=== PATIENT | female | born 1940 | race Caucasian/White ===

== ENCOUNTER → 2019-07-02 | Outpatient (CLI) | payer OTHER ==
[~2019-07-02] MED LIST: ATENPOW10; LISIPOW; METFORMIN; PROVASTATIN; SYNTHROID
[2019-07-02 15:49] LABS: Urine Blood TRACE /uL (Negative); Urine Specific Gravity 1.049 (1.001-1.035)
[2019-07-02 15:58] LABS: Basophils # (auto) 0.1 uL; Basophils % (auto) 1.2 % (0.0-2.0); Eosinophils # (auto) 0 uL; Eosinophils % (auto) 0.6 % (0.0-7.0); Hematocrit 41.6 % (36.0-46.0); Hemoglobin 13.5 g/dL (12.2-16.2); Lymphocytes # (auto) 1.6 uL; Lymphocytes % (auto) 21.6 % (10.0-50.0); Mean Corpuscular Hemoglobin 30.3 pg (28.0-32.0); Mean Corpuscular Hgb Conc. 32.6 g/dL (32.0-36.0); Mean Corpuscular Volume 92.9 fL (80.0-100.0); Monocytes # (auto) 0.5 uL; Monocytes % (auto) 7.2 % (0.0-12.0); Neutrophils # (auto) 5.2 uL; Neutrophils % (auto) 69.4 % (37.0-80.0); Nucleated Red Blood Cells % 0.1 %; Platelet Count (auto) 418 10^3/uL (140-450); Red Blood Cells 4.47 10^6/uL (4.0-5.20); Red Cell Distribution Width 13.5 % (11.8-14.3); White Blood Cell 7.5 10^3/uL (4.4-10.8)
[2019-07-02 16:09] LABS: Free T4 (Free Thyroxine) 0.19 ng/dL (0.89-1.76)
[2019-07-02 16:10] LABS: Albumin 4.2 g/dL (3.4-5.0); Calcium 10.3 mg/dL (8.5-10.1); Potassium 4.3 mmol/L (3.5-5.1)
[2019-07-02 16:24] LABS: BUN/Creatinine Ratio 14.5; Bilirubin, Direct 0.2 mg/dL (0-0.2); Bilirubin, Total 0.5 mg/dL (0.2-1.0); Total Protein 9.3 g/dL (6.4-8.2)
== END | disposition home or self-care (01) ==
LOC: Rad HDHVI 11:27
PROVIDERS: ATTEND Internal Medicine Cardiovascular Disease
DX: I70.0 Atherosclerosis of aorta (principal); E03.9 Hypothyroidism, unspecified; K90.9 Intestinal malabsorption, unspecified; N39.0 Urinary tract infection, site not specified; D51.9 Vitamin B12 deficiency anemia, unspecified; J44.9 Chronic obstructive pulmonary disease, unspecified; Z79.899 Other long term (current) drug therapy
CPT/HCPCS: 36415; 71046; 80048; 80061; 80076; 81003; 82306; 82607; 83036; 84439; 84443; 85025

== ENCOUNTER → 2019-07-11 | Outpatient (CLI) | payer OTHER | END | disposition home or self-care (01) | LOC: Rad HDHVI 13:10 | PROVIDERS: ATTEND Internal Medicine Cardiovascular Disease | DX: I10 Essential (primary) hypertension (principal); R07.89 Other chest pain; E78.5 Hyperlipidemia, unspecified | CPT/HCPCS: 93306 ==

== ENCOUNTER → 2019-07-16 | Outpatient (CLI) | payer OTHER ==
[2019-07-16 10:55] VITALS: BP 120/79
--- NOTE | 2019-07-16 10:55 | NUR ---
CHF PT ARRIVED TO THE CHF CLINIC NOT FEELING WELL PAST WEEK, INCREASED HR AND BLOOD SUGARS. A/O X 4 O DISTRESS AT THIS TIME VSS
[2019-07-16 11:20] VITALS: BP 128/83
--- NOTE | 2019-07-16 11:20 | NUR ---
Discharge Instructions See e-MAR for any mediations given with this visit. Patient education given on disease process. Patient verbalized understanding. Previous labs reviewed. Patient discharged in stable condition with after care instructions and follow up appointment. PT BLOOD SUGARS HAVE BEEN HIGH PATIENT HAS STOPPED BS MEDICATIONS INTERMITTENTLY WHILE NOT FEELING WELL. SITUATION REVIEWD BY MARGO WITH MD GUNN. MED RECONCILATION COMPLETED. PT VERBALIZED UNDERSTANDING. RX CALLED IN FOR ATENOLOL 25MG PO BID. PHARMACY JARROD ALDRIDGE
[2019-07-16 16:03] LABS: Potassium 3.9 mmol/L (3.5-5.1)
[2019-07-16 16:09] LABS: BUN/Creatinine Ratio 22.1; Magnesium 2.3 mg/dL (1.6-2.6)
== END | disposition home or self-care (01) ==
LOC: CHF HDHVI 10:47
PROVIDERS: ATTEND Internal Medicine Cardiovascular Disease
DX: E83.40 Disorders of magnesium metabolism, unspecified (principal); I10 Essential (primary) hypertension; E11.65 Type 2 diabetes mellitus with hyperglycemia; Z91.048 Other nonmedicinal substance allergy status
CPT/HCPCS: 36415; 80048; 82962; 83735; G0463

== ENCOUNTER → 2019-07-18 | Outpatient (CLI) | payer OTHER ==
[~2019-07-18] VITALS: Ht 160 cm; Wt 58.5 kg
== END | disposition home or self-care (01) ==
LOC: Rad HDHVI 08:30
PROVIDERS: ATTEND Internal Medicine Cardiovascular Disease
DX: E78.00 Pure hypercholesterolemia, unspecified (principal); E03.9 Hypothyroidism, unspecified; Q24.9 Congenital malformation of heart, unspecified; R07.89 Other chest pain
CPT/HCPCS: 78452; 93017; 96374; A9500

== ENCOUNTER → 2019-07-24 | Outpatient (CLI) | payer OTHER ==
[~2019-07-24] MED LIST changes: +CYANOCOBALAMIN (B-12) 1000 MCG/1 ML VIAL IM ONE; +CYANOCOBALAMIN (B-12) 1000 MCG/1 ML VIAL ONE; +MAGNESIUM OXIDE 400 MG TAB ONE; +MAGNESIUM OXIDE 400 MG TAB PO ONE; +MAGNESIUM SULFATE 1GM/100ML 100 ML IV ONE; +MVI in SODIUM CHLORIDE 0.9% 1,000 ML IVB ONE; +MVI in SODIUM CHLORIDE 0.9% 1,010 ML ONE
--- NOTE | 2019-07-24 10:25 | NUR ---
CHF PT ARRIVED TO THE CHF CLINIC EXPRESSING FATIGUE AND GENERALIZED NOT FEELING WELL. ORDERS TO TRANSFUSE MVI. VSS PT A/O X 4
--- NOTE | 2019-07-24 10:45 | NUR ---
IV insertion IV access obtained, via clean sterile technique by inserting 22 gauge catheter at RAC after attempt(s). IV secured properly. No trauma to site. Patient tolerated procedure well.
[2019-07-24 11:00] VITALS: BP 120/66
[2019-07-24 11:30] VITALS: BP 124/69
[2019-07-24 12:00] VITALS: BP 135/76
[2019-07-24 12:13] LABS: Basophils # (auto) 0.1 uL; Basophils % (auto) 0.9 % (0.0-2.0); Eosinophils # (auto) 0 uL; Eosinophils % (auto) 0.5 % (0.0-7.0); Hematocrit 39.1 % (36.0-46.0); Hemoglobin 12.9 g/dL (12.2-16.2); Lymphocytes # (auto) 2.1 uL; Lymphocytes % (auto) 26.9 % (10.0-50.0); Mean Corpuscular Hemoglobin 30.6 pg (28.0-32.0); Mean Corpuscular Hgb Conc. 33.1 g/dL (32.0-36.0); Mean Corpuscular Volume 92.4 fL (80.0-100.0); Monocytes # (auto) 0.6 uL; Neutrophils # (auto) 4.9 uL; Neutrophils % (auto) 63.7 % (37.0-80.0); Platelet Count (auto) 316 10^3/uL (140-450); Red Blood Cells 4.23 10^6/uL (4.0-5.20); Red Cell Distribution Width 13.3 % (11.8-14.3); White Blood Cell 7.6 10^3/uL (4.4-10.8)
[2019-07-24 12:49] LABS: Albumin 4.3 g/dL (3.4-5.0); Calcium 10.3 mg/dL (8.5-10.1); Magnesium 1.8 mg/dL (1.6-2.6)
[2019-07-24 12:53] LABS: BUN/Creatinine Ratio 26.2; Bilirubin, Total 0.5 mg/dL (0.2-1.0); Total Protein 8.3 g/dL (6.4-8.2)
--- NOTE | 2019-07-24 14:00 | NUR ---
LABS PT LABS CAME BACK MAGNESIUM LOW AND BUN CREA SLIGHTLY ELEVATED. MARGO RN REVIEWED LABS WITH PATIENT DISCUSSED HYDRATION, ARGINETIX AND DIABETIC EDUCATION. PT VERBALIZED UNDERSTANDING
--- NOTE | 2019-07-24 14:40 | NUR ---
IV removal IV DC'd with sterile technique, catheter fully intact. Pressure dressing applied to site. Patient tolerated procedure well. Discharged with aftercare instructions per MD. NOTE:
[2019-07-24 14:45] VITALS: BP 149/81
--- NOTE | 2019-07-24 14:45 | NUR ---
Discharge Instructions See e-MAR for any mediations given with this visit. Patient education given on disease process. Patient verbalized understanding. Previous labs reviewed. Patient discharged in stable condition with after care instructions and follow up appointment. MEDICATIONS MVI BAG I LITER [id number] VITAMIN B12 1000 MCG IM X 1 LEFT DELTOID LOT # [id number] EXP 03-25 MAGNESIUM RIDER 1 GRAM [id number] MAG OXIDE PO PT STATED SHE IS FEELING BETTER PLAN OF CARE DISCUSSED WITH MARGO RN PT VERBALIZED UNDERSTANDING
[2019-07-24 15:23] LABS: Urine Blood Negative /uL (Negative); Urine Specific Gravity 1.019 (1.001-1.035)
== END | disposition home or self-care (01) ==
LOC: CHF HDHVI 10:36
PROVIDERS: ATTEND Internal Medicine Cardiovascular Disease
DX: E86.0 Dehydration (principal); R53.83 Other fatigue; D64.9 Anemia, unspecified; J44.9 Chronic obstructive pulmonary disease, unspecified; N39.0 Urinary tract infection, site not specified; E03.9 Hypothyroidism, unspecified; E11.9 Type 2 diabetes mellitus without complications; E78.00 Pure hypercholesterolemia, unspecified; E78.5 Hyperlipidemia, unspecified; I10 Essential (primary) hypertension; Z79.899 Other long term (current) drug therapy
CPT/HCPCS: 36415; 80053; 81003; 83036; 83735; 85025; 96365; 96366; 96367; 96372; G0463; J3411; J3420; J3475

== ENCOUNTER → 2019-07-30 | Outpatient (CLI) | payer OTHER ==
[~2019-07-30] VITALS: Ht 30.5 cm; Wt 0.5 kg
[~2019-07-30] MED LIST changes: -CYANOCOBALAMIN (B-12) 1000 MCG/1 ML VIAL IM ONE; -CYANOCOBALAMIN (B-12) 1000 MCG/1 ML VIAL ONE; -MAGNESIUM OXIDE 400 MG TAB ONE; -MAGNESIUM OXIDE 400 MG TAB PO ONE; -MAGNESIUM SULFATE 1GM/100ML 100 ML IV ONE; -MVI in SODIUM CHLORIDE 0.9% 1,000 ML IVB ONE; +MVI in SODIUM CHLORIDE 0.9% 500 ML IVB ONE
[2019-07-30 10:50] VITALS: BP 110/62
--- NOTE | 2019-07-30 11:00 | NUR ---
IV insertion IV access obtained, via clean sterile technique by inserting 22 gauge catheter at RAC after 1 attempt(s). IV secured properly. No trauma to site. Patient tolerated procedure well.
--- NOTE | 2019-07-30 13:50 | NUR ---
IV removal IV DC'd with sterile technique, catheter fully intact. Pressure dressing applied to site. Patient tolerated procedure well.
[2019-07-30 13:52] VITALS: BP 136/85
--- NOTE | 2019-07-30 13:52 | NUR ---
CHF CLINIC Discharge Instructions See e-MAR for any mediations given with this visit. Patient education given on disease process. Patient verbalized understanding. Previous labs reviewed. Patient discharged in stable condition with after care instructions and follow up appointment. NOTE MVI IN NS [id number] ADMIN BY MARIO ALBERTO WALLER
== END | disposition home or self-care (01) ==
LOC: CHF HDHVI 10:52
PROVIDERS: ATTEND Internal Medicine Cardiovascular Disease
DX: R53.83 Other fatigue (principal); R53.1 Weakness; I11.0 Hypertensive heart disease with heart failure; I50.9 Heart failure, unspecified; J44.9 Chronic obstructive pulmonary disease, unspecified; E78.00 Pure hypercholesterolemia, unspecified; E11.65 Type 2 diabetes mellitus with hyperglycemia; E78.5 Hyperlipidemia, unspecified; E03.9 Hypothyroidism, unspecified; Z79.899 Other long term (current) drug therapy
CPT/HCPCS: 96365; 96366; G0463; J3411; J3475

== ENCOUNTER → 2019-08-07 | Outpatient (CLI) | payer OTHER ==
[~2019-08-07] VITALS: Ht 30.5 cm; Wt 54.0 kg
[~2019-08-07] MED LIST changes: +MVI in SODIUM CHLORIDE 0.9% 1,000 ML IVB ONE; -MVI in SODIUM CHLORIDE 0.9% 500 ML IVB ONE
[2019-08-07 10:40] VITALS: BP 103/55
--- NOTE | 2019-08-07 10:40 | NUR ---
IV insertion IV access obtained, via clean sterile technique by inserting 22 gauge catheter at after attempt(s). IV secured properly. No trauma to site. Patient tolerated procedure well.STAT LABS SENT PER MD ORDER.
--- NOTE | 2019-08-07 10:44 | NUR ---
MEDS: BANANA BAG STARTED PER MD ORDER. VSS. INITIAL RATE 250CC/HR AND TO BE TITRATED PRN.
--- NOTE | 2019-08-07 11:30 | NUR ---
PT. TO CLINIC FOR IV HYDRATION WITH BANANA BAG PER DR. GUNN. PT. HAS BEEN PLACED ON THIRD DIABETIC MEDICATION AFTER RECENTLY SEEN BY DR. GUNN. PT STATES SHE IS TOLERATING THE METFORMIN AND JARDIANCE BETTER. PT. AND SPOUSE STATE THAT PT. HAS NO ENERGY, AND WAS IN BED MUCH MORE THAN USUAL FOR HER. NO APPETITE PER PT. SEE NSG ASSESS. Addendum: 08/07/19 at 1430 by Dell Bahena RN [place] NOTE: PT ARRIVAL WAS AT 1030, NOT 11:30.
--- NOTE | 2019-08-07 12:00 | NUR ---
COMFORT: PT. RESTING WITH NO C/O. 137/67, 83, 16.
[2019-08-07 12:09] LABS: Basophils # (auto) 0.1 uL; Basophils % (auto) 0.9 % (0.0-2.0); Eosinophils # (auto) 0 uL; Eosinophils % (auto) 0.5 % (0.0-7.0); Hemoglobin 13.1 g/dL (12.2-16.2); Lymphocytes # (auto) 1.5 uL; Lymphocytes % (auto) 22.6 % (10.0-50.0); Mean Corpuscular Hemoglobin 31.2 pg (28.0-32.0); Mean Corpuscular Hgb Conc. 33.6 g/dL (32.0-36.0); Mean Corpuscular Volume 92.9 fL (80.0-100.0); Monocytes # (auto) 0.7 uL; Monocytes % (auto) 9.8 % (0.0-12.0); Neutrophils # (auto) 4.5 uL; Neutrophils % (auto) 66.2 % (37.0-80.0); Nucleated Red Blood Cells % 0.1 %; Platelet Count (auto) 322 10^3/uL (140-450); White Blood Cell 6.7 10^3/uL (4.4-10.8)
[2019-08-07 12:14] LABS: Potassium 4.1 mmol/L (3.5-5.1)
--- NOTE | 2019-08-07 13:30 | NUR ---
MEDS COMPLETE. PT. TOLERATED MEDS WELL. LABS REVIEWED WITH PT. AND SPOUSE.
[2019-08-07 13:40] VITALS: BP 140/70
--- NOTE | 2019-08-07 13:40 | NUR ---
IV removal IV DC'd with sterile technique, catheter fully intact. Pressure dressing applied to site. Patient tolerated procedure well. Discharged with aftercare instructions per MD. NOTE: PT. TO RTC ON TUESDAY PER DR. GUNN FOR ADDITIONAL HYDRATION.
== END | disposition home or self-care (01) ==
LOC: CHF HDHVI 10:33
PROVIDERS: ATTEND Internal Medicine Cardiovascular Disease
DX: E86.0 Dehydration (principal); I11.0 Hypertensive heart disease with heart failure; I50.9 Heart failure, unspecified; J44.9 Chronic obstructive pulmonary disease, unspecified; R74.8 Abnormal levels of other serum enzymes; E87.6 Hypokalemia; D64.9 Anemia, unspecified; R94.4 Abnormal results of kidney function studies; E78.00 Pure hypercholesterolemia, unspecified; E78.5 Hyperlipidemia, unspecified; E03.9 Hypothyroidism, unspecified; E11.65 Type 2 diabetes mellitus with hyperglycemia; Z79.899 Other long term (current) drug therapy
CPT/HCPCS: 36415; 82150; 82565; 83690; 84132; 84520; 85025; 96365; 96366; G0463; J3411; J3475

== ENCOUNTER → 2019-08-09 | Outpatient (CLI) | payer OTHER ==
[~2019-08-09] MED LIST changes: -MVI in SODIUM CHLORIDE 0.9% 1,000 ML IVB ONE; -MVI in SODIUM CHLORIDE 0.9% 1,010 ML ONE
[2019-08-09 11:35] VITALS: BP 117/68
[2019-08-09 12:01] VITALS: BP 106/74
--- NOTE | 2019-08-09 12:01 | NUR ---
Discharge Instructions See e-MAR for any mediations given with this visit. Patient education given on disease process. Patient verbalized understanding. Previous labs reviewed. Patient discharged in stable condition with after care instructions and follow up appointment. DIABETIC EDUCATION DONE WITH PATIENT DEMONSTRATION OF ADMINISTRATION OF INSULIN PEN SUCCESSFUL. UTILIZED HANDS ON TEACHING TOOL
== END | disposition home or self-care (01) ==
LOC: CHF HDHVI 11:58
PROVIDERS: ATTEND Internal Medicine Cardiovascular Disease
DX: E11.9 Type 2 diabetes mellitus without complications (principal); R63.4 Abnormal weight loss
CPT/HCPCS: G0463

== ENCOUNTER → 2019-08-10 | Outpatient (CLI) | payer OTHER ==
[~2019-08-10] MED LIST changes: +CYANOCOBALAMIN (B-12) 1000 MCG/1 ML VIAL IM ONE; +CYANOCOBALAMIN (B-12) 1000 MCG/1 ML VIAL ONE; +MVI in SODIUM CHLORIDE 0.9% 1,000 ML IVB ONE; +MVI in SODIUM CHLORIDE 0.9% 1,010 ML ONE; +POTASSIUM CHL 10 Meq TABLET PO ONE
[2019-08-10 11:30] VITALS: BP 88/53
--- NOTE | 2019-08-10 11:30 | NUR ---
IV insertion IV access obtained by Santino WALLER, via clean sterile technique by inserting 20 gauge catheter at [facility] after 1 attempt(s). IV secured properly. No trauma to site. Patient tolerated procedure well.
[2019-08-10 12:06] LABS: Basophils # (auto) 0.1 uL; Basophils % (auto) 1.1 % (0.0-2.0); Eosinophils # (auto) 0 uL; Eosinophils % (auto) 0.6 % (0.0-7.0); Hematocrit 36.2 % (36.0-46.0); Hemoglobin 12.1 g/dL (12.2-16.2); Lymphocytes # (auto) 1.9 uL; Lymphocytes % (auto) 27.9 % (10.0-50.0); Mean Corpuscular Hemoglobin 30.9 pg (28.0-32.0); Mean Corpuscular Hgb Conc. 33.4 g/dL (32.0-36.0); Mean Corpuscular Volume 92.6 fL (80.0-100.0); Monocytes # (auto) 0.8 uL; Monocytes % (auto) 11.4 % (0.0-12.0); Nucleated Red Blood Cells % 0.1 %; Platelet Count (auto) 327 10^3/uL (140-450); Red Blood Cells 3.91 10^6/uL (4.0-5.20); Red Cell Distribution Width 13.1 % (11.8-14.3); White Blood Cell 6.8 10^3/uL (4.4-10.8)
[2019-08-10 12:23] LABS: Calcium 8.6 mg/dL (8.5-10.1); Potassium 3.5 mmol/L (3.5-5.1)
[2019-08-10 12:27] LABS: BUN/Creatinine Ratio 34.8
--- NOTE | 2019-08-10 14:45 | NUR ---
IV removal IV DC'd with sterile technique, catheter fully intact. Pressure dressing applied to site. Patient tolerated procedure well.
[2019-08-10 14:47] VITALS: BP 144/80
--- NOTE | 2019-08-10 14:47 | NUR ---
CHF CLINIC Discharge Instructions See e-MAR for any mediations given with this visit. Patient education given on disease process. Patient verbalized understanding. Previous labs reviewed. Patient discharged in stable condition with after care instructions and follow up appointment. NOTE MVI IN NS [id number] ADMIN BY MARIO ALBERTO WALLER POTASSIUM PO ADMIN BY MARGO WALLER. B12 IM R DELTOID ADMIN BY MORA WALLER
[2019-08-10 16:39] LABS: Urine Blood TRACE /uL (Negative); Urine Specific Gravity 1.009 (1.001-1.035)
== END | disposition home or self-care (01) ==
LOC: CHF HDHVI 11:27
PROVIDERS: ATTEND Internal Medicine Cardiovascular Disease
DX: R53.1 Weakness (principal); R53.83 Other fatigue; I11.0 Hypertensive heart disease with heart failure; I50.9 Heart failure, unspecified; D64.9 Anemia, unspecified; E83.40 Disorders of magnesium metabolism, unspecified; N39.0 Urinary tract infection, site not specified; E87.6 Hypokalemia; J44.9 Chronic obstructive pulmonary disease, unspecified; E78.5 Hyperlipidemia, unspecified; E03.9 Hypothyroidism, unspecified; E78.00 Pure hypercholesterolemia, unspecified; E11.65 Type 2 diabetes mellitus with hyperglycemia; Z79.899 Other long term (current) drug therapy
CPT/HCPCS: 36415; 80048; 81003; 82962; 83735; 83880; 85025; 87086; 96365; 96366; 96372; G0463; J3411; J3420; J3475

== ENCOUNTER → 2019-08-15 | Outpatient (CLI) | payer OTHER ==
[~2019-08-15] VITALS: Ht 30.5 cm; Wt 54.9 kg
[~2019-08-15] MED LIST changes: -CYANOCOBALAMIN (B-12) 1000 MCG/1 ML VIAL IM ONE; -CYANOCOBALAMIN (B-12) 1000 MCG/1 ML VIAL ONE; -MVI in SODIUM CHLORIDE 0.9% 1,000 ML IVB ONE; +MVI in SODIUM CHLORIDE 0.9% 500 ML IVB ONE; +ONDANSETRON HCL 4 MG/2 ML VIAL IV ONE; +ONDANSETRON HCL 4 MG/2 ML VIAL ONE; -POTASSIUM CHL 10 Meq TABLET PO ONE
[2019-08-15 09:30] VITALS: BP 139/82
[2019-08-15 12:15] VITALS: BP 140/80
[2019-08-15 15:02] LABS: BUN/Creatinine Ratio 24.4; Calcium 9.7 mg/dL (8.5-10.1); Magnesium 1.7 mg/dL (1.6-2.6); Potassium 3.9 mmol/L (3.5-5.1)
== END | disposition home or self-care (01) ==
LOC: CHF HDHVI 09:26
PROVIDERS: ATTEND Internal Medicine Cardiovascular Disease
DX: R53.1 Weakness (principal); R53.83 Other fatigue; R11.0 Nausea; R63.4 Abnormal weight loss; I11.0 Hypertensive heart disease with heart failure; I50.9 Heart failure, unspecified; J44.9 Chronic obstructive pulmonary disease, unspecified; E83.40 Disorders of magnesium metabolism, unspecified; E11.65 Type 2 diabetes mellitus with hyperglycemia; E78.5 Hyperlipidemia, unspecified; E03.9 Hypothyroidism, unspecified; E78.00 Pure hypercholesterolemia, unspecified; Z79.899 Other long term (current) drug therapy
CPT/HCPCS: 36415; 80048; 83735; 96365; 96366; 96375; G0463; J2405; J3411; J3475

== ENCOUNTER → 2019-08-22 | Outpatient (CLI) | payer OTHER ==
[~2019-08-22] VITALS: Ht 30.5 cm; Wt 54.4 kg
[~2019-08-22] MED LIST changes: +MAGNESIUM SULFATE 1GM/100ML 100 ML IV ONE; -ONDANSETRON HCL 4 MG/2 ML VIAL IV ONE; -ONDANSETRON HCL 4 MG/2 ML VIAL ONE
[2019-08-22 09:58] VITALS: BP_SYST 132; BP_DIAS 74; BP_DIAS 76
[2019-08-22 10:15] VITALS: BP 135/76
[2019-08-22 11:00] VITALS: BP 163/80
[2019-08-22 11:20] LABS: BUN/Creatinine Ratio 25.3; Calcium 9.6 mg/dL (8.5-10.1); Magnesium 1.8 mg/dL (1.6-2.6); Potassium 4.3 mmol/L (3.5-5.1)
[2019-08-22 11:30] VITALS: BP 147/84
[2019-08-22 12:30] VITALS: BP 150/82
[2019-08-22 13:05] VITALS: BP 155/78
== END | disposition home or self-care (01) ==
LOC: CHF HDHVI 10:08
PROVIDERS: ATTEND Internal Medicine Cardiovascular Disease
DX: R63.4 Abnormal weight loss (principal); R53.83 Other fatigue; R53.1 Weakness; I11.0 Hypertensive heart disease with heart failure; I50.9 Heart failure, unspecified; E83.40 Disorders of magnesium metabolism, unspecified; E11.9 Type 2 diabetes mellitus without complications; J44.9 Chronic obstructive pulmonary disease, unspecified; E78.5 Hyperlipidemia, unspecified; E03.9 Hypothyroidism, unspecified; Z79.899 Other long term (current) drug therapy
CPT/HCPCS: 36415; 80048; 83735; 96365; 96366; 96368; G0463; J3411; J3475; 96367

== ENCOUNTER → 2019-09-03 | Outpatient (CLI) | payer OTHER ==
[~2019-09-03] MED LIST changes: -MAGNESIUM SULFATE 1GM/100ML 100 ML IV ONE; +MVI IN SODIUM CHLORIDE 0.9% IVB ONE; +TESTOSTERONE CYPIONATE 200 MG/ML 1ML VIAL IM ONE
[2019-09-03 11:15] VITALS: BP 150/76
--- NOTE | 2019-09-03 11:25 | NUR ---
SPOKE WITH DR GUNN REGARDING PATIENT WEIGHT LOSS AND LACK OF APPETITE, ORDERS RECEIVED FOR TESTOSTERONE 200MG IM ONCE A WEEK FOR 4 WEEKS.
--- NOTE | 2019-09-03 11:40 | NUR ---
IV insertion IV access obtained, via clean sterile technique by inserting 22 gauge catheter at after attempt(s). IV secured properly. No trauma to site. Patient tolerated procedure well.STARTED BY ROBINA WALLER
--- NOTE | 2019-09-03 13:58 | NUR ---
IV removal IV DC'd with sterile technique, catheter fully intact. Pressure dressing applied to site. Patient tolerated procedure well.
[2019-09-03 14:01] VITALS: BP 159/86
--- NOTE | 2019-09-03 14:01 | NUR ---
CHF CLINIC Discharge Instructions See e-MAR for any mediations given with this visit. Patient education given on disease process. Patient verbalized understanding. Previous labs reviewed. Patient discharged in stable condition with after care instructions and follow up appointment. NOTE MVI IN NS [id number] ADMIN BY MARIO ALBERTO WALLER. TESTOSTERONE IM R GLUTE ADMIN BY MORA NI.
[2019-09-03 15:55] LABS: Basophils # (auto) 0.1 uL; Basophils % (auto) 0.7 % (0.0-2.0); Eosinophils # (auto) 0.1 uL; Hematocrit 38.3 % (36.0-46.0); Lymphocytes # (auto) 2.1 uL; Lymphocytes % (auto) 27.9 % (10.0-50.0); Mean Corpuscular Hemoglobin 31.3 pg (28.0-32.0); Mean Corpuscular Hgb Conc. 33.9 g/dL (32.0-36.0); Mean Corpuscular Volume 92.2 fL (80.0-100.0); Monocytes # (auto) 0.8 uL; Monocytes % (auto) 10.3 % (0.0-12.0); Neutrophils # (auto) 4.6 uL; Neutrophils % (auto) 60.1 % (37.0-80.0); Nucleated Red Blood Cells % 0.1 %; Platelet Count (auto) 351 10^3/uL (140-450); Red Blood Cells 4.15 10^6/uL (4.0-5.20); Red Cell Distribution Width 12.2 % (11.8-14.3); White Blood Cell 7.7 10^3/uL (4.4-10.8)
[2019-09-03 16:08] LABS: Calcium 10.2 mg/dL (8.5-10.1); Magnesium 1.8 mg/dL (1.6-2.6); Potassium 4.5 mmol/L (3.5-5.1)
[2019-09-03 16:10] LABS: BUN/Creatinine Ratio 30.8
== END | disposition home or self-care (01) ==
LOC: CHF HDHVI 11:39
PROVIDERS: ATTEND Internal Medicine Cardiovascular Disease
DX: R63.4 Abnormal weight loss (principal); R63.0 Anorexia; R53.83 Other fatigue; I11.0 Hypertensive heart disease with heart failure; I50.9 Heart failure, unspecified; D64.9 Anemia, unspecified; J44.9 Chronic obstructive pulmonary disease, unspecified; E83.40 Disorders of magnesium metabolism, unspecified; E78.5 Hyperlipidemia, unspecified; E03.9 Hypothyroidism, unspecified; E11.65 Type 2 diabetes mellitus with hyperglycemia; Z79.899 Other long term (current) drug therapy
CPT/HCPCS: 36415; 80048; 83735; 84403; 85025; 96365; 96366; 96372; G0463; J1071; J3411; J3475

== ENCOUNTER → 2019-09-12 | Outpatient (CLI) | payer OTHER ==
[~2019-09-12] VITALS: Ht 30.5 cm; Wt 0.5 kg
[~2019-09-12] MED LIST changes: -MVI IN SODIUM CHLORIDE 0.9% IVB ONE; +MVI in SODIUM CHLORIDE 0.9% 1,000 ML IVB ONE; -MVI in SODIUM CHLORIDE 0.9% 500 ML IVB ONE
[2019-09-12 11:12] VITALS: BP 152/85
--- NOTE | 2019-09-12 11:20 | NUR ---
IV insertion IV access obtained by this RN, via clean sterile technique by inserting [22] gauge catheter at [LAC] after [1] attempt(s). IV secured properly. No trauma to site. Patient tolerated procedure well.
--- NOTE | 2019-09-12 14:30 | NUR ---
IV removal IV DC'd BY MORA NI with sterile technique, catheter fully intact. Pressure dressing applied to site. Patient tolerated procedure well.
[2019-09-12 14:44] VITALS: BP 132/78
--- NOTE | 2019-09-12 14:44 | NUR ---
CHF CLINIC Discharge Instructions See e-MAR for any mediations given with this visit. Patient education given on disease process. Patient verbalized understanding. Previous labs reviewed. Patient discharged in stable condition with after care instructions and follow up appointment. NOTES MVI [id number] ADMIN BY MORA WALLER TESTOSTERONE IM X1 RIGHT GLUTE ADMIN BY MORA NI
[2019-09-12 15:45] LABS: Basophils # (auto) 0.1 uL; Basophils % (auto) 0.7 % (0.0-2.0); Eosinophils # (auto) 0.1 uL; Eosinophils % (auto) 1.8 % (0.0-7.0); Hematocrit 37.3 % (36.0-46.0); Hemoglobin 12.4 g/dL (12.2-16.2); Lymphocytes % (auto) 25.1 % (10.0-50.0); Mean Corpuscular Hemoglobin 30.6 pg (28.0-32.0); Mean Corpuscular Hgb Conc. 33.3 g/dL (32.0-36.0); Monocytes # (auto) 0.7 uL; Monocytes % (auto) 8.8 % (0.0-12.0); Neutrophils % (auto) 63.6 % (37.0-80.0); Platelet Count (auto) 382 10^3/uL (140-450); Red Blood Cells 4.06 10^6/uL (4.0-5.20); Red Cell Distribution Width 12.6 % (11.8-14.3); White Blood Cell 7.8 10^3/uL (4.4-10.8)
[2019-09-12 16:04] LABS: Albumin 3.3 g/dL (3.4-5.0); BUN/Creatinine Ratio 29.6; Calcium 9.3 mg/dL (8.5-10.1); Magnesium 1.7 mg/dL (1.6-2.6); Potassium 3.5 mmol/L (3.5-5.1)
[2019-09-12 16:06] LABS: Bilirubin, Total 0.3 mg/dL (0.2-1.0); Total Protein 6.9 g/dL (6.4-8.2)
== END | disposition home or self-care (01) ==
LOC: CHF HDHVI 11:31
PROVIDERS: ATTEND Internal Medicine Cardiovascular Disease
DX: R63.4 Abnormal weight loss (principal); I11.0 Hypertensive heart disease with heart failure; I50.9 Heart failure, unspecified; J44.9 Chronic obstructive pulmonary disease, unspecified; K90.9 Intestinal malabsorption, unspecified; R00.2 Palpitations; E03.9 Hypothyroidism, unspecified; D64.9 Anemia, unspecified; F50.89 Other specified eating disorder; E78.5 Hyperlipidemia, unspecified; E11.65 Type 2 diabetes mellitus with hyperglycemia; E78.00 Pure hypercholesterolemia, unspecified; Z79.899 Other long term (current) drug therapy
CPT/HCPCS: 36415; 80053; 82306; 83036; 83735; 84443; 85025; 96365; 96366; 96372; G0463; J1071; J3411; J3475

== ENCOUNTER → 2019-09-21 | Outpatient (CLI) | payer OTHER ==
[~2019-09-21] MED LIST changes: +MAGNESIUM SULFATE 1GM/100ML 300 ML IV ONE; -MVI in SODIUM CHLORIDE 0.9% 1,000 ML IVB ONE; +MVI in SODIUM CHLORIDE 0.9% 500 ML IVB ONE; +POTASSIUM EFFERVESENT TAB 25 MEQ ONE; +POTASSIUM EFFERVESENT TAB 25 MEQ PO ONE; -TESTOSTERONE CYPIONATE 200 MG/ML 1ML VIAL IM ONE
[2019-09-21 08:35] VITALS: BP 141/70
[2019-09-21] MEDS: MAGNESIUM SULFATE 1GM/100ML 100 ML IV SCH ×3 (08:55→10:55)
[2019-09-21 12:14] LABS: Basophils # (auto) 0.1 uL; Basophils % (auto) 0.9 % (0.0-2.0); Eosinophils # (auto) 0.3 uL; Eosinophils % (auto) 5.1 % (0.0-7.0); Hematocrit 38.7 % (36.0-46.0); Lymphocytes # (auto) 1.5 uL; Lymphocytes % (auto) 24.6 % (10.0-50.0); Mean Corpuscular Hemoglobin 30.9 pg (28.0-32.0); Mean Corpuscular Hgb Conc. 33.5 g/dL (32.0-36.0); Mean Corpuscular Volume 92.1 fL (80.0-100.0); Monocytes # (auto) 0.8 uL; Monocytes % (auto) 12.3 % (0.0-12.0); Neutrophils # (auto) 3.5 uL; Neutrophils % (auto) 57.1 % (37.0-80.0); Nucleated Red Blood Cells % 0.1 %; Platelet Count (auto) 382 10^3/uL (140-450); Red Blood Cells 4.21 10^6/uL (4.0-5.20); Red Cell Distribution Width 12.6 % (11.8-14.3); White Blood Cell 6.1 10^3/uL (4.4-10.8)
[2019-09-21 12:15] VITALS: BP 151/77
[2019-09-21 12:17] LABS: BUN/Creatinine Ratio 21.1; Calcium 9.9 mg/dL (8.5-10.1); Magnesium 1.7 mg/dL (1.6-2.6)
== END | disposition home or self-care (01) ==
LOC: CHF HDHVI 08:50
PROVIDERS: ATTEND Internal Medicine Cardiovascular Disease
DX: D64.9 Anemia, unspecified (principal); E83.40 Disorders of magnesium metabolism, unspecified; E86.9 Volume depletion, unspecified; R53.83 Other fatigue; R63.0 Anorexia; I11.0 Hypertensive heart disease with heart failure; I50.9 Heart failure, unspecified; E11.9 Type 2 diabetes mellitus without complications; J44.9 Chronic obstructive pulmonary disease, unspecified; E78.5 Hyperlipidemia, unspecified; E03.9 Hypothyroidism, unspecified; E11.65 Type 2 diabetes mellitus with hyperglycemia; Z79.899 Other long term (current) drug therapy
CPT/HCPCS: 36415; 80048; 83735; 85025; 96365; 96366; 96368; G0463; J3411; J3475

== ENCOUNTER → 2019-09-26 | Outpatient (CLI) | payer OTHER ==
[~2019-09-26] VITALS: Ht 30.5 cm; Wt 53.5 kg
[2019-09-26] VITALS (13 sets, daily range): BP systolic 123–167; BP diastolic 81–92
[~2019-09-26] MED LIST changes: +MAGNESIUM OXIDE 400 MG TAB ONE; +MAGNESIUM OXIDE 400 MG TAB PO ONE; -MVI in SODIUM CHLORIDE 0.9% 1,010 ML ONE; -MVI in SODIUM CHLORIDE 0.9% 500 ML IVB ONE; -POTASSIUM EFFERVESENT TAB 25 MEQ ONE; -POTASSIUM EFFERVESENT TAB 25 MEQ PO ONE; +SODIUM CHLORIDE 0.9% 1,000 ML IV ONE; +TESTOSTERONE CYPIONATE 200 MG/ML 1ML VIAL IM ONE
--- NOTE | 2019-09-26 10:30 | NUR ---
IV insertion IV access obtained BY MARGO WALLER, via clean sterile technique by inserting [22] gauge catheter at [LEFT AC] after [1] attempt(s). IV secured properly. No trauma to site. Patient tolerated procedure well.
[2019-09-26 12:22] LABS: Albumin 3.5 g/dL (3.4-5.0); Bilirubin, Total 0.4 mg/dL (0.2-1.0); Calcium 9.7 mg/dL (8.5-10.1); Magnesium 1.7 mg/dL (1.6-2.6); Total Protein 7.4 g/dL (6.4-8.2)
[2019-09-26] MEDS: MAGNESIUM SULFATE 1GM/100ML 100 ML IV SCH ×2 (12:48→13:50)
--- NOTE | 2019-09-26 14:35 | NUR ---
IV removal IV DC'd BY MORA NI with sterile technique, catheter fully intact. Pressure dressing applied to site. Patient tolerated procedure well.
--- NOTE | 2019-09-26 14:40 | NUR ---
CHF CLINIC Discharge Instructions See e-MAR for any mediations given with this visit. Patient education given on disease process. Patient verbalized understanding. Previous labs reviewed. Patient discharged in stable condition with after care instructions and follow up appointment. NOTES NS IV [id number] ADMIN BY MARGO WALLER MAG OXIDE PO ADMIN BY MARGO WALLER MAG SULFATE IVPB X2 ADMIN BY MARGO WALLER TESTOSTERONE IN LEFT GLUT ADMIN BY MORA NI RANDOM BLOOD SUGAR CHECKED, WAS 87. PT STABLE WITHOUT ANY HYPOGLYCEMIA SYMPTOMS. PT JUST FINISHED HAVING LUNCH WHILE IN OFFICE. DUE TO LOW MAGNESIUM LEVEL, PT EDUCATED BY MARGO WALLER TO RESUME HOME MAG OXIDE TWICE A DAY. PT AND PT VERBALIZED UNDERSTANDING.
== END | disposition home or self-care (01) ==
LOC: CHF HDHVI 10:37
PROVIDERS: ATTEND Internal Medicine Cardiovascular Disease
DX: E86.0 Dehydration (principal); R19.7 Diarrhea, unspecified; R53.83 Other fatigue; R63.0 Anorexia; E83.40 Disorders of magnesium metabolism, unspecified; E87.8 Other disorders of electrolyte and fluid balance, not elsewhere classified; I11.0 Hypertensive heart disease with heart failure; I50.9 Heart failure, unspecified; I48.91 Unspecified atrial fibrillation; J44.9 Chronic obstructive pulmonary disease, unspecified; E03.9 Hypothyroidism, unspecified; E78.00 Pure hypercholesterolemia, unspecified; E11.65 Type 2 diabetes mellitus with hyperglycemia; E78.5 Hyperlipidemia, unspecified; Z79.01 Long term (current) use of anticoagulants; Z79.899 Other long term (current) drug therapy
CPT/HCPCS: 36415; 80053; 82962; 83735; 96361; 96365; 96366; 96372; G0463; J1071; J3475; J7030; 96360; 96367

== ENCOUNTER → 2019-10-01 | Outpatient (CLI) | payer OTHER ==
[~2019-10-01] VITALS: Ht 30.5 cm; Wt 0.5 kg
[~2019-10-01] MED LIST changes: -MAGNESIUM OXIDE 400 MG TAB ONE; -MAGNESIUM OXIDE 400 MG TAB PO ONE; -MAGNESIUM SULFATE 1GM/100ML 300 ML IV ONE; +MVI in SODIUM CHLORIDE 0.9% 1,010 ML ONE; +MVI in SODIUM CHLORIDE 0.9% 500 ML IVB ONE; -SODIUM CHLORIDE 0.9% 1,000 ML IV ONE; -TESTOSTERONE CYPIONATE 200 MG/ML 1ML VIAL IM ONE
--- NOTE | 2019-10-01 09:15 | NUR ---
PT. TO CLINIC FOR IV HYDRATION PER DR. GUNN. PT'S VS FROM PAST WEEK REVIEWED WITH PT. AND SPOUSE SHOWING IMPROVEMENTS, WITH PT. STATING SHE HAS GAINED 2-3 LBS SINCE LAST TX AND STARTING TO FEEL A BIT BETTER. ORDERS RECEIVED AND CARRIED OUT.
[2019-10-01 09:20] VITALS: BP 127/70
--- NOTE | 2019-10-01 09:20 | NUR ---
IV insertion IV access obtained, via clean sterile technique by inserting 22 gauge catheter at after attempt(s). IV secured properly. No trauma to site. Patient tolerated procedure well. LABS DRAWN AND SENT PER MD ORDER.
--- NOTE | 2019-10-01 09:27 | NUR ---
MEDS: BANANA BAG STARTED AT 300CC/HR PER MD ORDER.
--- NOTE | 2019-10-01 10:30 | NUR ---
PT. TO AND FROM BR WITHOUT ASSIST. MEDS RESUMED.
[2019-10-01 11:20] VITALS: BP 150/78
--- NOTE | 2019-10-01 11:20 | NUR ---
IV removal IV DC'd with sterile technique, catheter fully intact. Pressure dressing applied to site. Patient tolerated procedure well. Discharged with aftercare instructions per MD. NOTE: PT. TO RTC ON TUESDAY FOR EVAL. AND TX.
[2019-10-01 12:57] LABS: Potassium 4.4 mmol/L (3.5-5.1)
[2019-10-01 13:04] LABS: Magnesium 2.2 mg/dL (1.6-2.6)
== END | disposition home or self-care (01) ==
LOC: CHF HDHVI 09:18
PROVIDERS: ATTEND Internal Medicine Cardiovascular Disease
DX: E86.0 Dehydration (principal); I11.0 Hypertensive heart disease with heart failure; I50.9 Heart failure, unspecified; E03.9 Hypothyroidism, unspecified; E87.6 Hypokalemia; I48.91 Unspecified atrial fibrillation; J44.9 Chronic obstructive pulmonary disease, unspecified; E78.5 Hyperlipidemia, unspecified; E11.65 Type 2 diabetes mellitus with hyperglycemia; E78.00 Pure hypercholesterolemia, unspecified; Z79.899 Other long term (current) drug therapy
CPT/HCPCS: 36415; 82565; 83735; 84132; 84443; 84520; 96365; 96366; G0463; J3411; J3475

== ENCOUNTER → 2019-10-05 | Outpatient (CLI) | payer OTHER ==
[~2019-10-05] MED LIST changes: +MAGNESIUM SULFATE 1GM/100ML 100 ML IV ONE; +MVI in SODIUM CHLORIDE 0.9% 1,000 ML IVB ONE; +TESTOSTERONE CYPIONATE 200 MG/ML 1ML VIAL IM ONE
[2019-10-05 10:12] VITALS: BP 134/70
--- NOTE | 2019-10-05 10:35 | NUR ---
IV insertion IV access obtained BY MARIO ALBERTO WALLER, via clean sterile technique by inserting [22] gauge catheter at [LAC] after [1] attempt(s). IV secured properly. No trauma to site. Patient tolerated procedure well.
[2019-10-05 12:02] LABS: Basophils # (auto) 0.1 uL; Basophils % (auto) 1.2 % (0.0-2.0); Eosinophils # (auto) 0.2 uL; Hemoglobin 12.6 g/dL (12.2-16.2); Lymphocytes # (auto) 1.9 uL; Neutrophils # (auto) 3.7 uL; Neutrophils % (auto) 55.4 % (37.0-80.0)
[2019-10-05 12:06] LABS: Eosinophils % (auto) 3.6 % (0.0-7.0); Hematocrit 38.8 % (36.0-46.0); Lymphocytes % (auto) 27.8 % (10.0-50.0); Mean Corpuscular Hgb Conc. 32.5 g/dL (32.0-36.0); Mean Corpuscular Volume 92.3 fL (80.0-100.0); Monocytes # (auto) 0.8 uL; Nucleated Red Blood Cells % 0.1 %; Platelet Count (auto) 446 10^3/uL (140-450); Red Cell Distribution Width 12.8 % (11.8-14.3); White Blood Cell 6.7 10^3/uL (4.4-10.8)
[2019-10-05 12:17] LABS: Calcium 9.6 mg/dL (8.5-10.1); Potassium 4.1 mmol/L (3.5-5.1)
[2019-10-05 12:20] LABS: BUN/Creatinine Ratio 28.3; Magnesium 2.2 mg/dL (1.6-2.6)
--- NOTE | 2019-10-05 12:50 | NUR ---
IV removal IV DC'd BY MORA NI with sterile technique, catheter fully intact. Pressure dressing applied to site. Patient tolerated procedure well. Discharged with aftercare instructions per MD.
[2019-10-05 12:56] VITALS: BP 146/81
--- NOTE | 2019-10-05 12:56 | NUR ---
CHF CLINIC Discharge Instructions See e-MAR for any mediations given with this visit. Patient education given on disease process. Patient verbalized understanding. Previous labs reviewed. Patient discharged in stable condition with after care instructions and follow up appointment. NOTES MVI (BANANA BAG) IV [id number] ADMIN BY MARIO ALBERTO WALLER MAGNESIUM IV [id number] ADMIN BY MORA WALLER TESTOSTERONE IM RIGHT GLUT ADMIN BY MORA NI
== END | disposition home or self-care (01) ==
LOC: CHF HDHVI 10:37
PROVIDERS: ATTEND Internal Medicine Cardiovascular Disease
DX: I48.91 Unspecified atrial fibrillation (principal); D64.9 Anemia, unspecified; E61.2 Magnesium deficiency; I11.0 Hypertensive heart disease with heart failure; I50.9 Heart failure, unspecified; R53.83 Other fatigue; E87.8 Other disorders of electrolyte and fluid balance, not elsewhere classified; J44.9 Chronic obstructive pulmonary disease, unspecified; E03.9 Hypothyroidism, unspecified; E11.65 Type 2 diabetes mellitus with hyperglycemia; E78.5 Hyperlipidemia, unspecified; Z79.899 Other long term (current) drug therapy
CPT/HCPCS: 36415; 80048; 83735; 85025; 96365; 96366; 96368; 96372; G0463; J1071; J3411; J3475; 96367

== ENCOUNTER → 2019-10-08 | Outpatient (CLI) | payer OTHER ==
[~2019-10-08] MED LIST changes: -MAGNESIUM SULFATE 1GM/100ML 100 ML IV ONE; -MVI in SODIUM CHLORIDE 0.9% 1,000 ML IVB ONE; -TESTOSTERONE CYPIONATE 200 MG/ML 1ML VIAL IM ONE
--- NOTE | 2019-10-08 10:15 | NUR ---
IV insertion IV access obtained by Kylah WALLER, via clean sterile technique by inserting 22 gauge catheter at [facility] after 1 attempt(s). IV secured properly. No trauma to site. Patient tolerated procedure well.
--- NOTE | 2019-10-08 13:17 | NUR ---
IV removal IV DC'd with sterile technique, catheter fully intact. Pressure dressing applied to site. Patient tolerated procedure well. Discharged with aftercare instructions per MD. NOTE:
[2019-10-08 13:18] VITALS: BP 152/86
--- NOTE | 2019-10-08 13:18 | NUR ---
Discharge Instructions See e-MAR for any mediations given with this visit. Patient education given on disease process. Patient verbalized understanding. Previous labs reviewed. Patient discharged in stable condition with after care instructions and follow up appointment. MEDICATIONS MVI 500 ML IV [id number]
== END | disposition home or self-care (01) ==
LOC: CHF HDHVI 10:19
PROVIDERS: ATTEND Internal Medicine Cardiovascular Disease
DX: E86.0 Dehydration (principal); R53.83 Other fatigue; R63.4 Abnormal weight loss; J44.9 Chronic obstructive pulmonary disease, unspecified; I11.0 Hypertensive heart disease with heart failure; I50.9 Heart failure, unspecified; I48.91 Unspecified atrial fibrillation; E03.9 Hypothyroidism, unspecified; E11.65 Type 2 diabetes mellitus with hyperglycemia; E78.5 Hyperlipidemia, unspecified; Z79.01 Long term (current) use of anticoagulants; Z79.899 Other long term (current) drug therapy
CPT/HCPCS: 96365; 96366; G0463; J3411; J3475; J1642

== ENCOUNTER → 2019-10-15 | Outpatient (CLI) | payer OTHER ==
[2019-10-15 10:15] VITALS: BP 156/78
--- NOTE | 2019-10-15 10:15 | NUR ---
IV insertion IV access obtained, via clean sterile technique by inserting 22 gauge catheter at LAC after 1 attempt(s). IV secured properly. No trauma to site. Patient tolerated procedure well.
[2019-10-15 12:17] LABS: Basophils # (auto) 0.1 uL; Eosinophils # (auto) 0.4 uL; Hemoglobin 13.2 g/dL (12.2-16.2); Lymphocytes # (auto) 1.9 uL
[2019-10-15 12:19] LABS: Basophils % (auto) 1.1 % (0.0-2.0); Eosinophils % (auto) 4.4 % (0.0-7.0); Hematocrit 40.1 % (36.0-46.0); Lymphocytes % (auto) 22.7 % (10.0-50.0); Mean Corpuscular Hemoglobin 29.5 pg (28.0-32.0); Mean Corpuscular Hgb Conc. 32.8 g/dL (32.0-36.0); Monocytes % (auto) 11.8 % (0.0-12.0); Neutrophils # (auto) 4.9 uL; Nucleated Red Blood Cells % 0.1 %; Platelet Count (auto) 452 10^3/uL (140-450); Red Blood Cells 4.46 10^6/uL (4.0-5.20); Red Cell Distribution Width 13.3 % (11.8-14.3); White Blood Cell 8.2 10^3/uL (4.4-10.8)
[2019-10-15 12:38] LABS: Potassium 4.1 mmol/L (3.5-5.1)
[2019-10-15 12:44] LABS: INR 0.98 (0.9-1.15); Partial Thromboplastin Time 28.5 sec (23.64-32.05)
[2019-10-15 12:46] LABS: Albumin 3.6 g/dL (3.4-5.0); BUN/Creatinine Ratio 22.7; Bilirubin, Total 0.5 mg/dL (0.2-1.0); Calcium 9.6 mg/dL (8.5-10.1); Total Protein 7.6 g/dL (6.4-8.2)
--- NOTE | 2019-10-15 13:05 | NUR ---
IV removal IV DC'd with sterile technique, catheter fully intact. Pressure dressing applied to site. Patient tolerated procedure well.
[2019-10-15 13:10] VITALS: BP 157/79
--- NOTE | 2019-10-15 13:10 | NUR ---
CHF CLINIC Discharge Instructions See e-MAR for any mediations given with this visit. Patient education given on disease process. Patient verbalized understanding. Previous labs reviewed. Patient discharged in stable condition with after care instructions and follow up appointment. NOTE MVI [id number] ADMIN BY MARIO ALBERTO WALLER
[2019-10-15 16:00] LABS: Urine Blood Negative /uL (Negative); Urine Specific Gravity 1.008 (1.001-1.035)
== END | disposition home or self-care (01) ==
LOC: CHF HDHVI 10:42
PROVIDERS: ATTEND Internal Medicine Cardiovascular Disease
DX: E86.0 Dehydration (principal); I11.0 Hypertensive heart disease with heart failure; I50.9 Heart failure, unspecified; I48.91 Unspecified atrial fibrillation; H25.12 Age-related nuclear cataract, left eye; J44.9 Chronic obstructive pulmonary disease, unspecified; D68.318 Other hemorrhagic disorder due to intrinsic circulating anticoagulants, antibodies, or inhibitors; R53.83 Other fatigue; R63.0 Anorexia; E03.9 Hypothyroidism, unspecified; E78.5 Hyperlipidemia, unspecified; E78.00 Pure hypercholesterolemia, unspecified; E11.65 Type 2 diabetes mellitus with hyperglycemia; Z01.812 Encounter for preprocedural laboratory examination; Z79.01 Long term (current) use of anticoagulants; Z79.899 Other long term (current) drug therapy
CPT/HCPCS: 36415; 80053; 81003; 85025; 85610; 85730; 87086; 96365; 96366; G0463; J3411; J3475

== ENCOUNTER → 2019-10-23 | Outpatient (CLI) | payer OTHER ==
[~2019-10-23] MED LIST changes: +ATEN-60 PO; +ATEN50TA PO; +INSU100I33 SC; +LEVO150T10 PO; +LIDOCAINE 2%HCL (LOCAL ANESTH.) INJ 20ML MDV ONE; +MAGN400T40 PO; +METF-370 PO; +METF-372 PO; +ROSU10TA16 PO
[2019-10-23 09:50] VITALS: BP 145/80
--- NOTE | 2019-10-23 10:00 | NUR ---
IV insertion IV access obtained, via clean sterile technique by inserting 22 gauge catheter at after attempt(s). IV secured properly. No trauma to site. Patient tolerated procedure well. NOTE DONE BY LAKESHA WALLER
[2019-10-23 12:05] LABS: Basophils # (auto) 0.1 uL; Eosinophils # (auto) 0.2 uL; Eosinophils % (auto) 2.6 % (0.0-7.0); Hematocrit 40.9 % (36.0-46.0); Hemoglobin 13.3 g/dL (12.2-16.2); Lymphocytes # (auto) 1.8 uL; Lymphocytes % (auto) 23.7 % (10.0-50.0); Mean Corpuscular Hemoglobin 28.8 pg (28.0-32.0); Mean Corpuscular Hgb Conc. 32.6 g/dL (32.0-36.0); Mean Corpuscular Volume 88.5 fL (80.0-100.0); Monocytes # (auto) 0.8 uL; Monocytes % (auto) 10.2 % (0.0-12.0); Neutrophils # (auto) 4.7 uL; Neutrophils % (auto) 62.5 % (37.0-80.0); Platelet Count (auto) 446 10^3/uL (140-450); Red Blood Cells 4.62 10^6/uL (4.0-5.20); Red Cell Distribution Width 13.3 % (11.8-14.3); White Blood Cell 7.5 10^3/uL (4.4-10.8)
[2019-10-23 12:17] LABS: BUN/Creatinine Ratio 25.6; Calcium 10.2 mg/dL (8.5-10.1); Potassium 4.4 mmol/L (3.5-5.1)
--- NOTE | 2019-10-23 12:44 | NUR ---
IV removal IV DC'd with sterile technique, catheter fully intact. Pressure dressing applied to site. Patient tolerated procedure well. Discharged with aftercare instructions per MD.FOLLOW UP WITH MD GUNN TUESDAY NOTE: REMOVED BY MARGO WALLER
[2019-10-23 12:45] VITALS: BP 141/71
--- NOTE | 2019-10-23 12:45 | NUR ---
Discharge Instructions See e-MAR for any mediations given with this visit. Patient education given on disease process. Patient verbalized understanding. Previous labs reviewed. Patient discharged in stable condition with after care instructions and follow up appointment [place] [id number]
== END | disposition home or self-care (01) ==
LOC: CHF HDHVI 09:52
PROVIDERS: ATTEND Internal Medicine Cardiovascular Disease
DX: E86.0 Dehydration (principal); R53.83 Other fatigue; D64.9 Anemia, unspecified; R00.2 Palpitations; I11.0 Hypertensive heart disease with heart failure; I50.9 Heart failure, unspecified; I48.91 Unspecified atrial fibrillation; J44.9 Chronic obstructive pulmonary disease, unspecified; E03.9 Hypothyroidism, unspecified; E78.00 Pure hypercholesterolemia, unspecified; E11.65 Type 2 diabetes mellitus with hyperglycemia; Z79.899 Other long term (current) drug therapy
CPT/HCPCS: 36415; 80048; 83735; 85025; 96365; 96366; G0463; J3411; J3475

== ENCOUNTER → 2019-10-29 | Outpatient (CLI) | payer OTHER ==
[~2019-10-29] VITALS: Ht 30.5 cm; Wt 0.5 kg
[~2019-10-29] MED LIST changes: -ATEN-60 PO; -ATEN50TA PO; -INSU100I33 SC; -LEVO150T10 PO; -LIDOCAINE 2%HCL (LOCAL ANESTH.) INJ 20ML MDV ONE; -MAGN400T40 PO; -METF-370 PO; -METF-372 PO; -ROSU10TA16 PO
[2019-10-29 10:04] VITALS: BP 114/57
[2019-10-29 12:00] VITALS: BP 144/70
[2019-10-29 12:13] LABS: Potassium 4.4 mmol/L (3.5-5.1)
[2019-10-29 12:24] LABS: BUN/Creatinine Ratio 23.8; Calcium 9.7 mg/dL (8.5-10.1); Magnesium 2.2 mg/dL (1.6-2.6)
[2019-10-29 13:50] VITALS: BP 114/57
[2019-10-29 14:00] VITALS: BP 165/70
== END | disposition home or self-care (01) ==
LOC: CHF HDHVI 10:40
PROVIDERS: ATTEND Internal Medicine Cardiovascular Disease
DX: E86.0 Dehydration (principal); R53.83 Other fatigue; I11.0 Hypertensive heart disease with heart failure; I50.9 Heart failure, unspecified; J44.9 Chronic obstructive pulmonary disease, unspecified; E03.9 Hypothyroidism, unspecified; E78.00 Pure hypercholesterolemia, unspecified; E11.65 Type 2 diabetes mellitus with hyperglycemia; E78.5 Hyperlipidemia, unspecified; Z79.01 Long term (current) use of anticoagulants; Z79.899 Other long term (current) drug therapy
CPT/HCPCS: 36415; 80048; 83735; 96365; 96366; G0463; J3411; J3475

== ENCOUNTER → 2019-11-06 | Outpatient (CLI) | payer OTHER ==
[2019-11-06 10:00] VITALS: BP 145/73
--- NOTE | 2019-11-06 10:00 | NUR ---
CHF PT ARRIVED TO THE [facility] FOR TX F/U, MVI INFUSION. A/O X4 VSS. PT STILL HAS COMPLAINTS OF ABDOMINAL PAIN SCHEDULED APPT WITH [facility] 11/14/2019
--- NOTE | 2019-11-06 10:26 | NUR ---
IV insertion IV access obtained, via clean sterile technique by inserting 22 gauge catheter at L after 1 attempt(s). IV secured properly. No trauma to site. Patient tolerated procedure well. NOTE INSERTED BY LAKESHA WALLER
[2019-11-06 12:05] LABS: Basophils # (auto) 0.1 10 ^3/uL (0-0.2); Basophils % (auto) 0.6 % (0.0-2.0); Eosinophils # (auto) 0.2 10 ^3/uL (0-0.8); Eosinophils % (auto) 1.7 % (0.0-7.0); Hematocrit 39.8 % (36.0-46.0); Hemoglobin 13.2 g/dL (12.2-16.2); Lymphocytes # (auto) 1.1 10 ^3/uL (0.4-5.4); Lymphocytes % (auto) 11.3 % (10.0-50.0); Mean Corpuscular Hemoglobin 28.6 pg (28.0-32.0); Mean Corpuscular Hgb Conc. 33.1 g/dL (32.0-36.0); Mean Corpuscular Volume 86.6 fL (80.0-100.0); Monocytes # (auto) 1.2 10 ^3/uL (0-1.3); Monocytes % (auto) 11.8 % (0.0-12.0); Neutrophils # (auto) 7.3 10 ^3/uL (1.6-8.6); Neutrophils % (auto) 74.6 % (37.0-80.0); Nucleated Red Blood Cells % 0.1 %; Platelet Count (auto) 405 10^3/uL (140-450); Red Cell Distribution Width 13.4 % (11.8-14.3); White Blood Cell 9.7 10^3/uL (4.4-10.8)
[2019-11-06 12:09] LABS: Potassium 4.1 mmol/L (3.5-5.1)
[2019-11-06 12:15] LABS: Calcium 9.9 mg/dL (8.5-10.1); Magnesium 1.8 mg/dL (1.6-2.6)
--- NOTE | 2019-11-06 13:09 | NUR ---
IV removal IV DC'd with sterile technique, catheter fully intact. Pressure dressing applied to site. Patient tolerated procedure well. Discharged with aftercare instructions per MD. NOTE: REMOVED BY JOSHUA WALLER
[2019-11-06 13:11] VITALS: BP 145/73
--- NOTE | 2019-11-06 13:11 | NUR ---
Discharge Instructions See e-MAR for any mediations given with this visit. Patient education given on disease process. Patient verbalized understanding. Patient discharged in stable condition with after care instructions and follow up appointment WITH [facility] ON 11/14/2019 NOTE MVI BAG IV BY LAKESHA WALLER
== END | disposition home or self-care (01) ==
LOC: CHF HDHVI 10:42
PROVIDERS: ATTEND Internal Medicine Cardiovascular Disease
DX: E86.0 Dehydration (principal); R53.83 Other fatigue; I11.0 Hypertensive heart disease with heart failure; I50.9 Heart failure, unspecified; I48.91 Unspecified atrial fibrillation; D64.9 Anemia, unspecified; J44.9 Chronic obstructive pulmonary disease, unspecified; E03.9 Hypothyroidism, unspecified; E11.9 Type 2 diabetes mellitus without complications; E78.00 Pure hypercholesterolemia, unspecified; E78.5 Hyperlipidemia, unspecified; Z79.01 Long term (current) use of anticoagulants; Z79.899 Other long term (current) drug therapy
CPT/HCPCS: 36415; 80048; 83735; 85025; 96365; 96366; G0463; J3411; J3475

== ENCOUNTER → 2019-11-13 | Outpatient (CLI) | payer OTHER ==
[2019-11-13 09:51] VITALS: BP 119/60
[2019-11-13 12:30] VITALS: BP 137/71
== END | disposition home or self-care (01) ==
LOC: CHF HDHVI 09:52
PROVIDERS: ATTEND Internal Medicine Cardiovascular Disease
DX: E86.0 Dehydration (principal); R53.83 Other fatigue; I11.0 Hypertensive heart disease with heart failure; I50.9 Heart failure, unspecified; I48.91 Unspecified atrial fibrillation; J44.9 Chronic obstructive pulmonary disease, unspecified; R63.4 Abnormal weight loss; R94.4 Abnormal results of kidney function studies; E78.5 Hyperlipidemia, unspecified; E03.9 Hypothyroidism, unspecified; E78.00 Pure hypercholesterolemia, unspecified; E11.65 Type 2 diabetes mellitus with hyperglycemia; Z79.01 Long term (current) use of anticoagulants
CPT/HCPCS: 36415; 82565; 96365; 96366; G0463; J3411; J3475

== ENCOUNTER → 2019-11-16 | Outpatient (CLI) | payer OTHER ==
[~2019-11-16] MED LIST changes: +IOHEXOL 350 MG/ML 100ML IJ ONE; -MVI in SODIUM CHLORIDE 0.9% 1,010 ML ONE; -MVI in SODIUM CHLORIDE 0.9% 500 ML IVB ONE; +READI-CAT 2 (BARIUM SULF)(VANILLA SMOOTHIE) 450ML ONE
[2019-11-16 09:08] VITALS: BP 158/72
[2019-11-16 10:21] VITALS: BP 149/79
== END | disposition home or self-care (01) ==
LOC: Rad HDHVI 08:53
PROVIDERS: ATTEND Internal Medicine Cardiovascular Disease
DX: K57.30 Diverticulosis of large intestine without perforation or abscess without bleeding (principal); K80.20 Calculus of gallbladder without cholecystitis without obstruction; M51.36 Other intervertebral disc degeneration, lumbar region; R10.9 Unspecified abdominal pain; E11.9 Type 2 diabetes mellitus without complications; R63.4 Abnormal weight loss
CPT/HCPCS: 71260; 74177; G0463; Q9967

== ENCOUNTER → 2019-11-20 | Outpatient (CLI) | payer OTHER ==
[~2019-11-20] MED LIST changes: -IOHEXOL 350 MG/ML 100ML IJ ONE; +MVI in SODIUM CHLORIDE 0.9% 1,010 ML ONE; +MVI in SODIUM CHLORIDE 0.9% 500 ML IVB ONE; -READI-CAT 2 (BARIUM SULF)(VANILLA SMOOTHIE) 450ML ONE
[2019-11-20 10:01] VITALS: BP 152/79
[2019-11-20 14:25] VITALS: BP 162/80
== END | disposition home or self-care (01) ==
LOC: CHF HDHVI 10:13
PROVIDERS: ATTEND Internal Medicine Cardiovascular Disease
DX: E86.0 Dehydration (principal); R53.83 Other fatigue; J44.9 Chronic obstructive pulmonary disease, unspecified; I11.0 Hypertensive heart disease with heart failure; I50.9 Heart failure, unspecified; I48.91 Unspecified atrial fibrillation; E78.5 Hyperlipidemia, unspecified; E11.65 Type 2 diabetes mellitus with hyperglycemia; E03.9 Hypothyroidism, unspecified; E78.00 Pure hypercholesterolemia, unspecified; Z79.899 Other long term (current) drug therapy
CPT/HCPCS: 96365; 96366; G0463; J3411; J3475

== ENCOUNTER → 2019-12-24 | Outpatient (CLI) | payer OTHER ==
[~2019-12-24] MED LIST changes: +ATEN-60 PO; +ATEN50TA PO; +ATOR40TA52 PO; +BENA5TAB5 PO; +EMPA1TAB3 PO; +HEPA10004 IJ; +INSU100I33 SC; +LEVO100T8 PO; +LEVO150T10 PO; +MAGN400T40 PO; +METF-370 PO; +METF-372 PO; -MVI in SODIUM CHLORIDE 0.9% 1,010 ML ONE; -MVI in SODIUM CHLORIDE 0.9% 500 ML IVB ONE; +ROSU10TA16 PO
== END | disposition home or self-care (01) ==
LOC: LAB 09:03
PROVIDERS: ATTEND Internal Medicine Cardiovascular Disease
DX: E11.9 Type 2 diabetes mellitus without complications (principal); E03.9 Hypothyroidism, unspecified; Z79.899 Other long term (current) drug therapy
CPT/HCPCS: 36415; 83036; 84439; 84443

== ENCOUNTER → 2019-12-31 | Outpatient (CLI) | payer OTHER ==
[~2019-12-31] VITALS: Ht 160 cm; Wt 51.7 kg
[~2019-12-31] MED LIST changes: -ATOR40TA52 PO; -BENA5TAB5 PO; -EMPA1TAB3 PO; -HEPA10004 IJ; -LEVO100T8 PO
[2019-12-31 10:06] LABS: Basophils # (auto) 0 10 ^3/uL (0-0.2); Basophils % (auto) 0.6 % (0.0-2.0); Eosinophils # (auto) 0.1 10 ^3/uL (0-0.8); Eosinophils % (auto) 0.8 % (0.0-7.0); Hematocrit 40.3 % (36.0-46.0); Hemoglobin 13.2 g/dL (12.2-16.2); Lymphocytes # (auto) 1.7 10 ^3/uL (0.4-5.4); Lymphocytes % (auto) 21.7 % (10.0-50.0); Mean Corpuscular Hemoglobin 28.1 pg (28.0-32.0); Mean Corpuscular Hgb Conc. 32.9 g/dL (32.0-36.0); Mean Corpuscular Volume 85.5 fL (80.0-100.0); Monocytes # (auto) 0.7 10 ^3/uL (0-1.3); Monocytes % (auto) 8.3 % (0.0-12.0); Neutrophils # (auto) 5.5 10 ^3/uL (1.6-8.6); Neutrophils % (auto) 68.6 % (37.0-80.0); Nucleated Red Blood Cells % 0.1 %; Platelet Count (auto) 358 10^3/uL (140-450); Red Blood Cells 4.71 10^6/uL (4.0-5.20); Red Cell Distribution Width 14.8 % (11.8-14.3); White Blood Cell 7.9 10^3/uL (4.4-10.8)
[2019-12-31 10:23] LABS: INR 1.01 (0.9-1.15); Partial Thromboplastin Time 29.3 sec (23.64-32.05)
== END | disposition home or self-care (01) ==
LOC: LAB 10:00 → EDSTATUS 01-04 10:00
PROVIDERS: ATTEND Internal Medicine Gastroenterology
DX: Z01.818 Encounter for other preprocedural examination (principal); Z98.890 Other specified postprocedural states
CPT/HCPCS: 36415; 85025; 85610; 85730

== ENCOUNTER 2020-02-02 10:22 | Inpatient (IN) | payer OTHER ==
[~2020-02-02] VITALS: Ht 160 cm; Wt 68.5 kg
[~2020-02-02 10:22] MED LIST changes: -ATENPOW10; -LISIPOW; -METFORMIN; -PROVASTATIN; -SYNTHROID
--- NOTE | 2020-02-02 11:00 | NUR ---
DIRECT ADMIT PATIENT BROUGHT TO ROOM 291A. DIRECT ADMIT FROM DR. GUNN'S OFFICE. IV TO THE RIGHT HAND 2OG PLACED. PATIENT PLACED IN BED, BED ALARM ON, CALL LIGHT IN REACH. NO DISTRESS NOTED. WILL CONTINUE TO MONITOR.
--- NOTE | 2020-02-02 11:20 | NUR ---
ORDERS RECEIVED ADMISSION ORDERS RECEIVED FROM DR. GUNN, READ BACK, WILL PLACE AND CARRY OUT.
[2020-02-02] MEDS ORDERED: LACTULOSE 20Gm/30ML SOLN PO PRN (12:00)
[2020-02-02] MEDS ORDERED: DEXTROSE (50%) 50ML SYRG IV PRN (12:15)
[2020-02-02 13:00] VITALS: BP 137/73
[2020-02-02] MEDS ORDERED: LEVO100T8 PO (14:13)
[2020-02-02] MEDS ORDERED: EMPA1TAB3 PO (14:13)
[2020-02-02] MEDS ORDERED: METF-370 PO (14:13)
[2020-02-02] MEDS ORDERED: ATOR40TA52 PO (14:13)
[2020-02-02] MEDS ORDERED: HEPA10004 IJ (14:13)
[2020-02-02] MEDS ORDERED: BENA5TAB5 PO (14:13)
--- NOTE | 2020-02-02 14:41 | NUR ---
HOME MEDS HOME MEDS RECEIVED, MED REQ UPDATED. MEDS SENT DOWN TO PHARMACY.
--- NOTE | 2020-02-02 15:35 | NUR ---
SWALLOW EVALUATED. PATIENT HAS RIGHT SIDE PARESIS POST CVA. PATIENT HAS NATURAL TEETH UPPER AND LOWER. PATIENT IS APHASIC BUT NODDED RESPONSES. ABLE TO FOLLOW COMMANDS. PATIENT ABLE TO TOLERATE MECHANICAL SOFT DIET TEXTURE WITH THIN LIQUIDS WITH NO OVERT SIGNS OR SYMPTOMS OF ASPIRATION. NURSING NOTIFIED.
[2020-02-02] MEDS: InsuLIN REG 1unit/0.01ml Soln (100units/ml) SC SCH ×2 (17:00→21:29)
[2020-02-02 17:08] VITALS: BP 116/73
[2020-02-02] MEDS: ACCU-CHEK COMFORT CURVE STRIP VI SCH ×2 (18:00→21:28)
[2020-02-02] MEDS: metFORMIN HYDROCHLORIDE 500 MG TAB PO SCH (18:00)
--- NOTE | 2020-02-02 19:15 | NUR ---
opening note pt is A&Ox4. respirations are even and nonlabored on room air. pt denies pain at this time. POC discussed with patient. bed in low locked position, call light within reach.
[2020-02-02] MEDS: ATORVASTATIN 20 MG TAB PO SCH (21:28)
[2020-02-02 22:00] VITALS: BP 119/66
[2020-02-03 05:00] VITALS: BP 132/81
[2020-02-03] MEDS: ACCU-CHEK COMFORT CURVE STRIP VI SCH ×4 (06:27→22:00)
[2020-02-03] MEDS: InsuLIN REG 1unit/0.01ml Soln (100units/ml) SC SCH ×4 (06:27→22:00)
[2020-02-03] MEDS: LEVOTHYROXINE SODIUM 100 MCG TAB PO SCH (06:40)
--- NOTE | 2020-02-03 07:11 | NUR ---
closing note pt resting in left lateral position. pt is comfortable at this time. respirations even and nonlabored on room air. bed in low locked position, call light within reach.
--- NOTE | 2020-02-03 07:20 | NUR ---
RECEIVED REPORT FROM NIGHT NURSE. PATIENT RESTING IN BED, NO DISTRESS NOTED. WILL CONTINUE TO MONITOR.
[2020-02-03] MEDS: metFORMIN HYDROCHLORIDE 500 MG TAB PO SCH ×2 (08:00→18:00)
--- NOTE | 2020-02-03 08:30 | NUR ---
NEW: SYNERGY AIR ELITE AIR MATTRESS ORDERED AT THIS TIME. PATIENT TO BE PLACED, PENDING DELIVERY BY JOE DE LA ROSA
[2020-02-03 09:00] VITALS: BP 142/79
--- NOTE | 2020-02-03 10:00 | NUR ---
WOUND CARE NOTE: WOUND CONSULT ORDERED FOR PATIENT WITH LOW JURGEN SCORES/IMMOBILITY. PATIENT ADMITTED TO [facility] WITH DIAGNOSIS OF CVA. CURRENT JURGEN SCORE IS 12. PATIENT HAS LEFT SIDED HEMIPLEGIA. SHE IS MAX ASSIST FOR ALL OF HER ADL'S, INCLUDING TURNING/REPOSITIONING. SKIN/WOUND CARE PLAN IMPLEMENTED. PATIENT WOULD BENEFIT FROM FREQUENT TURN SCHEDULE Q 2 HOURS, PRN CONDITION PERMITS, WITH PRESSURE REDISTRIBUTION USING PILLOWS/WEDGES, SPECIALTY AIR MATTRESS, BID/PRN APPLICATION WITH MOISTURE BARRIER CREAM, OPTIFOAM GENTLE SACRAL DRESSING PREVENTATIVE, DIETARY CONSULT FOR LOW JURGEN, CONTINUED MONITORING BY WOUND CARE TEAM.
[2020-02-03 10:43] LABS: Basophils # (auto) 0.1 10 ^3/uL (0-0.2); Basophils % (auto) 1.2 % (0.0-2.0); Eosinophils # (auto) 0.1 10 ^3/uL (0-0.8); Eosinophils % (auto) 1.5 % (0.0-7.0); Hematocrit 39.7 % (36.0-46.0); Hemoglobin 13.2 g/dL (12.2-16.2); Lymphocytes # (auto) 1.7 10 ^3/uL (0.4-5.4); Lymphocytes % (auto) 27.3 % (10.0-50.0); Mean Corpuscular Hemoglobin 29.6 pg (28.0-32.0); Mean Corpuscular Hgb Conc. 33.3 g/dL (32.0-36.0); Mean Corpuscular Volume 88.7 fL (80.0-100.0); Monocytes # (auto) 0.5 10 ^3/uL (0-1.3); Neutrophils # (auto) 3.9 10 ^3/uL (1.6-8.6); Nucleated Red Blood Cells % 0.1 %; Platelet Count (auto) 296 10^3/uL (140-450); Red Blood Cells 4.47 10^6/uL (4.0-5.20); Red Cell Distribution Width 16.2 % (11.8-14.3); White Blood Cell 6.3 10^3/uL (4.4-10.8)
[2020-02-03] MEDS: MAGNESIUM OXIDE 400 MG TAB PO SCH (10:47)
[2020-02-03] MEDS: BENAZEPRIL HCL 10 MG TAB PO SCH (10:48)
[2020-02-03] MEDS: ASPirin 81 mg TAB PO SCH (10:48)
[2020-02-03] MEDS: JARDIANCE 25 MG TABLET PO SCH (10:49)
[2020-02-03] MEDS: ATENOLOL 50 MG TAB PO SCH (10:49)
[2020-02-03 10:59] LABS: Calcium 9.7 mg/dL (8.5-10.1); Potassium 3.6 mmol/L (3.5-5.1)
[2020-02-03 11:06] LABS: Albumin 3.4 g/dL (3.4-5.0); BUN/Creatinine Ratio 47.4; Bilirubin, Total 0.9 mg/dL (0.2-1.0); Total Protein 7.7 g/dL (6.4-8.2)
[2020-02-03 13:00] VITALS: BP 110/70
[2020-02-03 17:00] VITALS: BP 129/79
--- NOTE | 2020-02-03 19:00 | NUR ---
Opening Shift Note Assumed care of patient, awake and alert. No S/S of distress/SOB or pain. Instructed on POC and to call for assist PRN, will continue to monitor for changes Q1hr and PRN.
[2020-02-03 22:00] VITALS: BP 135/85
[2020-02-03] MEDS: ATORVASTATIN 20 MG TAB PO SCH (22:00)
[2020-02-04 05:00] VITALS: BP 147/76
[2020-02-04] MEDS: ACCU-CHEK COMFORT CURVE STRIP VI SCH ×4 (06:55→22:00)
[2020-02-04] MEDS: InsuLIN REG 1unit/0.01ml Soln (100units/ml) SC SCH ×4 (06:56→22:00)
[2020-02-04] MEDS: LEVOTHYROXINE SODIUM 100 MCG TAB PO SCH (07:02)
--- NOTE | 2020-02-04 07:20 | NUR ---
Opening Shift Note Assumed care of patient, awake and alert. No S/S of distress/SOB or pain, respirations are even and unlabored. Updated on POC and instructed to call for assistance PRN. Bed locked in lowest position, side rails up x2, call light within reach, safety precautions in place, bed alarm on. Will continue to monitor for changes Q1hr and PRN.
[2020-02-04] MEDS: metFORMIN HYDROCHLORIDE 500 MG TAB PO SCH ×2 (08:13→17:32)
[2020-02-04 09:25] VITALS: BP 136/82
[2020-02-04] MEDS: ATENOLOL 50 MG TAB PO SCH (11:10)
[2020-02-04] MEDS: ASPirin 81 mg TAB PO SCH (11:10)
[2020-02-04] MEDS: BENAZEPRIL HCL 10 MG TAB PO SCH (11:11)
[2020-02-04] MEDS: HYDROcodone-ACET 10/325MG TAB PO PRN (11:11)
[2020-02-04] MEDS: MAGNESIUM OXIDE 400 MG TAB PO SCH (11:11)
[2020-02-04] MEDS: JARDIANCE 25 MG TABLET PO SCH (11:11)
[2020-02-04 14:44] VITALS: BP 128/77
--- NOTE | 2020-02-04 15:30 | NUR ---
PATIENT ROUNDS PATIENT RESTING WITH EYES CLOSED, RESPIRATIONS ARE EVEN AND UNLABORED. NO S/S OF DISTRESS/SOB. WILL CONTINUE TO MONITOR.
--- NOTE | 2020-02-04 16:15 | NUR ---
assessment re: ss consult transfer from SNF Patient is a 79 year old female who was not answering her phone. Per patients prior to admission patient was skilled at [facility] in [place] for the past 16 or 17 days. Per Torey patient had a stroke on 01/03/2020 around 5pm and she went to [facility] and was air lifted to [place] and admitted to ICU for about 5 days. [place] sent patient to [facility]. Patient was direct admitted by Dr Morgan her PCP for discharge planning. Per Torey he wants to bring patient home on discharge. Patient will need a hospital bed, wheelchair, fww, bedside commode and home health for PT. Torey verbalized understanding and agreed to discharge plan home. Addendum: 02/04/20 at 1624 by Lexy OBREGON Amended: Links added.
[2020-02-04 16:53] VITALS: BP 87/53
--- NOTE | 2020-02-04 18:00 | NUR ---
SCDS APPLIED TO BILATERAL LOWER EXTREMITIES.
--- NOTE | 2020-02-04 18:51 | NUR ---
END OF SHIFT PATIENT AWAKE AND ALERT, RESPIRATIONS ARE EVEN AND UNLABORED. NO S/S OF DISTRESS/SOB. ENDORSED CARE TO CREDIT CARD CLERK RN.
[2020-02-04 21:51] VITALS: BP 92/51
[2020-02-04] MEDS: ATORVASTATIN 20 MG TAB PO SCH (22:26)
[2020-02-05 05:00] VITALS: BP 121/67
[2020-02-05] MEDS: ACCU-CHEK COMFORT CURVE STRIP VI SCH ×4 (06:38→22:16)
[2020-02-05] MEDS: InsuLIN REG 1unit/0.01ml Soln (100units/ml) SC SCH ×4 (06:38→22:00)
[2020-02-05] MEDS: LEVOTHYROXINE SODIUM 100 MCG TAB PO SCH (07:05)
[2020-02-05] MEDS: metFORMIN HYDROCHLORIDE 500 MG TAB PO SCH ×2 (08:34→17:05)
[2020-02-05 08:53] VITALS: BP 119/72
[2020-02-05] MEDS: ATENOLOL 50 MG TAB PO SCH (10:19)
[2020-02-05] MEDS: MAGNESIUM OXIDE 400 MG TAB PO SCH (10:19)
[2020-02-05] MEDS: ASPirin 81 mg TAB PO SCH (10:19)
[2020-02-05] MEDS: JARDIANCE 25 MG TABLET PO SCH (10:19)
[2020-02-05] MEDS: BENAZEPRIL HCL 10 MG TAB PO SCH (10:19)
[2020-02-05 13:02] VITALS: BP 95/57
[2020-02-05 17:20] VITALS: BP 104/68
--- NOTE | 2020-02-05 19:30 | NUR ---
Opening Shift Note Assumed care of patient. Patient is awake and alert. No S/S of distress/SOB or pain. Instructed on POC and to call for assist PRN, will continue to monitor for changes Q1hr and PRN. Bed locked in lowest position and bed rails up x2. Call light within reach.
[2020-02-05 22:00] VITALS: BP 102/63
[2020-02-05] MEDS: ATORVASTATIN 20 MG TAB PO SCH (22:16)
--- NOTE | 2020-02-06 01:20 | NUR ---
Patient had a smear bowel movement
[2020-02-06 05:30] VITALS: BP 145/73
[2020-02-06] MEDS: LEVOTHYROXINE SODIUM 100 MCG TAB PO SCH (06:39)
[2020-02-06] MEDS: ACCU-CHEK COMFORT CURVE STRIP VI SCH ×4 (06:39→22:31)
[2020-02-06] MEDS: InsuLIN REG 1unit/0.01ml Soln (100units/ml) SC SCH ×4 (06:40→22:00)
[2020-02-06] MEDS: metFORMIN HYDROCHLORIDE 500 MG TAB PO SCH ×2 (08:26→18:00)
[2020-02-06 09:18] VITALS: BP 126/77
[2020-02-06] MEDS: MAGNESIUM OXIDE 400 MG TAB PO SCH (10:02)
[2020-02-06] MEDS: JARDIANCE 25 MG TABLET PO SCH (10:02)
[2020-02-06] MEDS: ASPirin 81 mg TAB PO SCH (10:02)
[2020-02-06] MEDS: ATENOLOL 50 MG TAB PO SCH (10:03)
[2020-02-06] MEDS: BENAZEPRIL HCL 10 MG TAB PO SCH (10:03)
[2020-02-06 13:00] VITALS: BP 141/82
--- NOTE | 2020-02-06 14:54 | NUR ---
Nutrition Assessment Notes Please refer to link for full assessment notes. Est Energy needs: 8716-6798 kcals (20-23 kcal/kgBW) Est Protein needs: 60-66 gms/day (1.0-1.1 gm/kgBW) Will continue to monitor and reassess prn. Addendum: 02/06/20 at [address] Amended: Links added.
[2020-02-06 15:08] LABS: Basophils # (auto) 0.1 10 ^3/uL (0-0.2); Basophils % (auto) 0.9 % (0.0-2.0); Eosinophils # (auto) 0.2 10 ^3/uL (0-0.8); Eosinophils % (auto) 2.7 % (0.0-7.0); Hematocrit 41.6 % (36.0-46.0); Hemoglobin 13.7 g/dL (12.2-16.2); Lymphocytes # (auto) 1.8 10 ^3/uL (0.4-5.4); Lymphocytes % (auto) 23.6 % (10.0-50.0); Mean Corpuscular Hemoglobin 29.4 pg (28.0-32.0); Mean Corpuscular Hgb Conc. 32.9 g/dL (32.0-36.0); Mean Corpuscular Volume 89.5 fL (80.0-100.0); Monocytes # (auto) 0.6 10 ^3/uL (0-1.3); Monocytes % (auto) 7.5 % (0.0-12.0); Neutrophils # (auto) 5.1 10 ^3/uL (1.6-8.6); Neutrophils % (auto) 65.3 % (37.0-80.0); Nucleated Red Blood Cells % 0.1 %; Platelet Count (auto) 314 10^3/uL (140-450); Red Blood Cells 4.65 10^6/uL (4.0-5.20); Red Cell Distribution Width 16.6 % (11.8-14.3); White Blood Cell 7.7 10^3/uL (4.4-10.8)
[2020-02-06 15:21] LABS: Albumin 3.5 g/dL (3.4-5.0); Calcium 10.2 mg/dL (8.5-10.1)
[2020-02-06 15:25] LABS: BUN/Creatinine Ratio 43.4; Bilirubin, Total 0.7 mg/dL (0.2-1.0); Total Protein 7.9 g/dL (6.4-8.2)
[2020-02-06 16:57] VITALS: BP 120/63
--- NOTE | 2020-02-06 17:44 | NUR ---
D/C planning Regarding social service consult for SNF placement. Contact patient Mukul [phone]. Per Mukul patient was previously at [facility] in the [facility] for about 3 weeks and did not see any improvement stating facility discharge patient home. Patient inform me he would like to speak to doctor Eddie regarding discharge to home.
--- NOTE | 2020-02-06 17:47 | NUR ---
spoke with Citlaly, she said pt's doesn't want the pt to go to SNF, Dr. Morgan notified.
[2020-02-06 22:00] VITALS: BP 117/64
[2020-02-06] MEDS: ATORVASTATIN 20 MG TAB PO SCH (22:31)
[2020-02-07 05:30] VITALS: BP 138/77
[2020-02-07] MEDS: ACCU-CHEK COMFORT CURVE STRIP VI SCH ×4 (06:46→22:22)
[2020-02-07] MEDS: InsuLIN REG 1unit/0.01ml Soln (100units/ml) SC SCH ×4 (06:46→22:00)
[2020-02-07] MEDS: LEVOTHYROXINE SODIUM 100 MCG TAB PO SCH (06:46)
[2020-02-07] MEDS: metFORMIN HYDROCHLORIDE 500 MG TAB PO SCH ×2 (07:54→17:28)
--- NOTE | 2020-02-07 08:00 | NUR ---
Opening Shift Note Assumed care of patient, awake and alert. No S/S of distress/SOB or pain. Patient is total assist with ADL's. 1:1 feeder. Instructed on POC and to call for assist PRN, will continue to monitor for changes Q1hr and PRN.
[2020-02-07] MEDS ORDERED: ALBUMIN 5% 250 ML IV ONE (08:45)
--- NOTE | 2020-02-07 10:00 | NUR ---
Pt refused PT tx due to c/o pain level of 9/10. Addendum: 02/07/20 at 1217 by Michi Nascimento CHAPLAINCY Amended: Links added.
[2020-02-07] MEDS: MAGNESIUM OXIDE 400 MG TAB PO SCH (10:27)
[2020-02-07] MEDS: ATENOLOL 50 MG TAB PO SCH (10:27)
[2020-02-07] MEDS: BENAZEPRIL HCL 10 MG TAB PO SCH (10:27)
[2020-02-07] MEDS: HYDROcodone-ACET 10/325MG TAB PO PRN (10:28)
[2020-02-07] MEDS: RIVAROXABAN 10 MG TAB PO SCH (10:28)
[2020-02-07] MEDS: MEGESTROL ACET 400MG/10ML ORAL SUSP PO SCH (10:28)
[2020-02-07] MEDS: ASPirin 81 mg TAB PO SCH (10:28)
[2020-02-07] MEDS: JARDIANCE 25 MG TABLET PO SCH (10:29)
--- NOTE | 2020-02-07 11:00 | NUR ---
Pt refused PT tx. Addendum: 02/07/20 at 1223 by Michi Nascimento [employer] Amended: Links added.
--- NOTE | 2020-02-07 13:00 | NUR ---
Patient still complained of severe pain on the left lateral side of abdomen. Dr. Morgan made aware. Waiting for orders.
[2020-02-07 14:00] VITALS: BP 104/64
[2020-02-07] MEDS ORDERED: HYDROmorphone HCL 2 MG/ML VL IV PRN (14:00)
[2020-02-07] MEDS: BACLOFEN 10 MG TAB PO SCH ×2 (14:41→22:24)
--- NOTE | 2020-02-07 14:42 | NUR ---
10/10 pain level on left lateral side of the abdomen. Medicated with Dilaudid IV as ordered.
[2020-02-07 17:00] VITALS: BP 77/50
--- NOTE | 2020-02-07 19:18 | NUR ---
Opening Note Assumed pt care from NOC RN. Pt is awake, alert, and oriented 4 with no s/s of respiratory distress. Pt is currently has no pain or discomfort. Bed in lowest position, brakes locked, side rails up X 2, call light within reach. Patient is on RA with SpO2 98%. Discussed POC with pt; patient instructed to call for assistance as needed; pt verbalized understanding. Will continue to monitor for changes.
[2020-02-07 20:00] VITALS: BP 90/54
[2020-02-07 22:00] VITALS: BP 90/54
[2020-02-07] MEDS: ATORVASTATIN 20 MG TAB PO SCH (22:24)
[2020-02-08] VITALS (7 sets, daily range): BP systolic 101–157; BP diastolic 60–94
[2020-02-08] MEDS: BACLOFEN 10 MG TAB PO SCH ×3 (06:06→21:51)
[2020-02-08] MEDS: InsuLIN REG 1unit/0.01ml Soln (100units/ml) SC SCH ×4 (06:28→21:47)
[2020-02-08] MEDS: ACCU-CHEK COMFORT CURVE STRIP VI SCH ×4 (06:28→21:42)
[2020-02-08] MEDS: LEVOTHYROXINE SODIUM 100 MCG TAB PO SCH (06:29)
--- NOTE | 2020-02-08 07:30 | NUR ---
Opening Shift Note Assumed care of patient, sleeping and lethargic. Not alert. Patient wakes to shaking and opens eyes. shortly after she closes her eyes again. No S/S of distress/SOB or pain. Instructed on POC and to call for assist PRN, will continue to monitor for changes Q1hr and PRN.
[2020-02-08] MEDS: metFORMIN HYDROCHLORIDE 500 MG TAB PO SCH ×2 (08:00→18:00)
[2020-02-08] MEDS: ASPirin 81 mg TAB PO SCH (10:00)
[2020-02-08] MEDS: MAGNESIUM OXIDE 400 MG TAB PO SCH (10:00)
[2020-02-08] MEDS: RIVAROXABAN 10 MG TAB PO SCH (10:00)
[2020-02-08] MEDS: MEGESTROL ACET 400MG/10ML ORAL SUSP PO SCH (10:00)
[2020-02-08] MEDS: ATENOLOL 50 MG TAB PO SCH (10:00)
[2020-02-08] MEDS: JARDIANCE 25 MG TABLET PO SCH (10:00)
[2020-02-08] MEDS: BENAZEPRIL HCL 10 MG TAB PO SCH (10:38)
--- NOTE | 2020-02-08 19:20 | NUR ---
Opening Note Assumed care of patient. Pt is awake and alert with no s/s of respiratory distress. Respirations are regular and non-labored. Pt reports no pain or discomfort. Bed in lowest position, brakes locked, side rails up X 2, call light within reach. Patient is on RA with SpO2 98%. Discussed POC with pt. Patient instructed to call for assistance as needed. Will continue to monitor for changes Q1H or/and PRN.
[2020-02-08] MEDS: ATORVASTATIN 20 MG TAB PO SCH (21:51)
--- NOTE | 2020-02-09 03:45 | NUR ---
Dressing changed per Dr's order. Z guard applied. Skin is intact. Patient tolerated well.
[2020-02-09 05:00] VITALS: BP 128/73
--- NOTE | 2020-02-09 06:05 | NUR ---
Refused medication Was unable to administer Baclofen to the patient. Patient did not open her mouth and was sleepy.
[2020-02-09] MEDS: LEVOTHYROXINE SODIUM 100 MCG TAB PO SCH (06:35)
[2020-02-09] MEDS: BACLOFEN 10 MG TAB PO SCH ×3 (06:35→22:02)
[2020-02-09] MEDS: ACCU-CHEK COMFORT CURVE STRIP VI SCH ×4 (06:48→22:02)
[2020-02-09] MEDS: InsuLIN REG 1unit/0.01ml Soln (100units/ml) SC SCH ×4 (06:54→22:00)
--- NOTE | 2020-02-09 07:30 | NUR ---
Opening Shift Note Assumed care of patient, awake and alert when being spoken to. Fatigued and sleeping. No S/S of distress/SOB or pain. Instructed on POC and to call for assist PRN, will continue to monitor for changes Q1hr and PRN.
[2020-02-09 08:00] VITALS: BP 141/80
[2020-02-09] MEDS: metFORMIN HYDROCHLORIDE 500 MG TAB PO SCH ×2 (08:17→18:00)
[2020-02-09] MEDS: MEGESTROL ACET 400MG/10ML ORAL SUSP PO SCH (10:00)
[2020-02-09] MEDS: RIVAROXABAN 10 MG TAB PO SCH (10:00)
[2020-02-09] MEDS: ATENOLOL 50 MG TAB PO SCH (10:00)
[2020-02-09] MEDS: BENAZEPRIL HCL 10 MG TAB PO SCH (10:00)
[2020-02-09] MEDS: JARDIANCE 25 MG TABLET PO SCH (10:00)
[2020-02-09] MEDS: ASPirin 81 mg TAB PO SCH (10:00)
[2020-02-09] MEDS: MAGNESIUM OXIDE 400 MG TAB PO SCH (10:00)
[2020-02-09 12:00] VITALS: BP 141/84
--- NOTE | 2020-02-09 12:50 | NUR ---
gave baclofen early per dr. evangelista orders. he wanted the patient to take it because she was breathing too fast and losing co2. he believed she was in pain. baclofen given.
--- NOTE | 2020-02-09 14:21 | NUR ---
SPOKE WITH THE PATIENT'S TAMEKA AND INFORMED HIM OF THE PROCEDURE THAT DR. PIERSON AND DR. GUNN RECOMMEND. THE PATIENT WANTS ME TO CONTACT MARGO JACINTO SO HE CAN TALK TO HIM ABOUT THE PEG TUBE PLACEMENT. I WILL CALL [place].
--- NOTE | 2020-02-09 14:27 | NUR ---
SPOKE WITH MARGO JACINTO. HE SAID THAT HE WILL SPEAK WITH TAMEKA AND HAVE TAMEKA CALL ME WHEN HE DECIDES.
--- NOTE | 2020-02-09 14:52 | NUR ---
SPOKE WITH TAMEKA. HE GAVE CONSENT TO DO THE PROCEDURE. SHERRY WITNESSED THE CONSENT WITH ME.
[2020-02-09 17:00] VITALS: BP 111/66
--- NOTE | 2020-02-09 19:19 | NUR ---
Opening Note Assumed pt care from Day shift RN. Pt is asleep right now. No s/s of respiratory distress are noted. Respirations are regular and non-labored. Bed in lowest position, brakes locked, side rails up X 2, call light within reach. Patient is on RA with SpO2 95%. POC will be discussed with the pt. Patient will be instructed to call for assistance as needed. Will continue to monitor for changes Q1H or/and PRN.
[2020-02-09 20:00] VITALS: BP 100/72
[2020-02-09 21:51] VITALS: BP 130/74
[2020-02-09] MEDS: ATORVASTATIN 20 MG TAB PO SCH (22:02)
--- NOTE | 2020-02-10 03:48 | NUR ---
Optifoam placed on sacral area per Dr's order. Z guard cream applied. Skin is intact. Patient tolerated well.
[2020-02-10 04:44] VITALS: BP 123/66
[2020-02-10 05:17] LABS: Basophils # (auto) 0.1 10 ^3/uL (0-0.2); Basophils % (auto) 0.5 % (0.0-2.0); Eosinophils # (auto) 0 10 ^3/uL (0-0.8); Eosinophils % (auto) 0.3 % (0.0-7.0); Hematocrit 41.3 % (36.0-46.0); Lymphocytes # (auto) 1.3 10 ^3/uL (0.4-5.4); Lymphocytes % (auto) 11.2 % (10.0-50.0); Mean Corpuscular Hemoglobin 29.6 pg (28.0-32.0); Mean Corpuscular Hgb Conc. 33.9 g/dL (32.0-36.0); Mean Corpuscular Volume 87.3 fL (80.0-100.0); Monocytes # (auto) 0.8 10 ^3/uL (0-1.3); Monocytes % (auto) 7.4 % (0.0-12.0); Neutrophils # (auto) 9.3 10 ^3/uL (1.6-8.6); Neutrophils % (auto) 80.6 % (37.0-80.0); Nucleated Red Blood Cells % 0.2 %; Platelet Count (auto) 330 10^3/uL (140-450); Red Blood Cells 4.73 10^6/uL (4.0-5.20); Red Cell Distribution Width 16.2 % (11.8-14.3); White Blood Cell 11.5 10^3/uL (4.4-10.8)
[2020-02-10 05:25] LABS: Albumin 3.7 g/dL (3.4-5.0); Calcium 10.1 mg/dL (8.5-10.1); Potassium 3.9 mmol/L (3.5-5.1)
[2020-02-10 05:28] LABS: BUN/Creatinine Ratio 57.1; Total Protein 7.8 g/dL (6.4-8.2)
[2020-02-10] MEDS: BACLOFEN 10 MG TAB PO SCH ×3 (06:00→22:00)
--- NOTE | 2020-02-10 06:09 | NUR ---
Morning meds Unable to give morning medications to the patient. Patient opens eyes to sternal rub or shaking only. Does not open mouth for medication and water.
[2020-02-10] MEDS: ACCU-CHEK COMFORT CURVE STRIP VI SCH ×3 (06:39→17:46)
[2020-02-10] MEDS: LEVOTHYROXINE SODIUM 100 MCG TAB PO SCH (06:39)
[2020-02-10] MEDS: InsuLIN REG 1unit/0.01ml Soln (100units/ml) SC SCH ×4 (06:46→22:00)
--- NOTE | 2020-02-10 07:30 | NUR ---
Opening Shift Note Assumed care of patient. Patient asleep and difficult to arouse. Message sent to Dr. Morgan. No S/S of distress/SOB or pain. Will continue to monitor for changes Q1hr and PRN.
[2020-02-10 08:00] VITALS: BP 105/62
[2020-02-10] MEDS: metFORMIN HYDROCHLORIDE 500 MG TAB PO SCH ×2 (08:00→17:46)
[2020-02-10 09:00] VITALS: BP 105/62
[2020-02-10] MEDS: BENAZEPRIL HCL 10 MG TAB PO SCH (10:00)
[2020-02-10] MEDS: JARDIANCE 25 MG TABLET PO SCH (10:00)
[2020-02-10] MEDS: MEGESTROL ACET 400MG/10ML ORAL SUSP PO SCH (10:00)
[2020-02-10] MEDS: MAGNESIUM OXIDE 400 MG TAB PO SCH (10:00)
[2020-02-10] MEDS: ATENOLOL 50 MG TAB PO SCH (10:00)
--- NOTE | 2020-02-10 11:30 | NUR ---
WOUND CARE NOTE: Wound care in to see patient for skin integrity monitoring. Patient continue resting on air mattress in Rm. 291A. Patient's eyes are closed, respirations even and unlabored. Patient appears to be in no pain using Santos Cortez Faces Pain Scale. She's max assist in ADL's. Her Kannan score is 12. Skin assessment done with the assistance of patient's nurse, CHRISTIN Gonzalez. No open wound noted, no pressure injury noted. Patient is receiving BID/PRN cleaning and application of Barrier cream to sacral, buttocks as preventative. Repositioned patient for comfort facing her Rt. side, redistributed pressure points with pillows. Patient tolerated well. RECOMMENDATION: Continuation of all wound care orders prescribed by MD, continue with skin/wound preventative plan of care, continue monitoring by wound care while patient is hospitalized due too immobility. Addendum: 02/10/20 at 1716 by Di Lucas RN Amended: Links added.
--- NOTE | 2020-02-10 12:20 | NUR ---
IV insertion IV access obtained, via clean sterile technique by inserting 22 gauge catheter at Left wrist after 1 attempt. IV secured properly. No trauma to site. Patient tolerated well. NOTE: IV REMOVED TO RIGHT WRIST DUE TO INFILTRATION. CATHETER INTACT AND PRESSURE DRESSING APPLIED.
[2020-02-10] MEDS: SODIUM CHLORIDE 0.9% 1,000 ML IV SCH (12:45)
[2020-02-10] MEDS: cefTRIAXone 1GM/50ML D5W 50 ML IV SCH (12:45)
[2020-02-10 13:00] VITALS: BP 101/54
--- NOTE | 2020-02-10 16:13 | NUR ---
Nutrition Followup Notes Pt wt is 59.4 kg. Pt was sleeping when rounded this am. Pt is on a MSoft diet with a negligible appetite aeb 15% of meals eaten in two days. Pt with no noted distress per RN doc. Will continue to closely monitor pertinent labs, PO intake and skin status prn. Will followup in 3-5 days Please refer to recommendations noted under Comments. Est Energy needs: 3021-5901 kcals (20-23 kcal/kgBW) Est Protein needs: 60-66 gms/day (1.0-1.1 gm/kgBW) Will continue to monitor and reassess prn. LABS: bun 40 H, Gluc 148 H, GI: 1 BM on 02/08 per RN doc. BS: 13 mod risk. Please refer to wound assessment report for full details. PES: Problem Inadequate oral intake r/t pt with poor appetite aeb ave 38% PO intake Comments Will continue to closely monitor pertinent labs, PO intake and skin status prn. Will followup in 3-5 days 1) Continue to closely monitor and assist pt PO intake to meet at least 75% of meals 2) If pt appetite remains poor (<50% PO intake) consider supplemental nutrition support 3) Continue current plan of care
[2020-02-10 17:00] VITALS: BP 114/69
--- NOTE | 2020-02-10 17:46 | NUR ---
HELD INSULIN BECAUSE PATIENT HAS NOT BEEN EATING DU TO LETHARGY. ALSO HELD METFORMIN DUE TO THE SAME CIRCUMSTANCES.
--- NOTE | 2020-02-10 19:30 | NUR ---
Opening Shift Note Assumed care of patient, lethargic and unresponsive (see interventions). No S/S of distress/SOB or pain. Will continue to monitor for changes Q1hr and PRN. Fall and safety precautions in place.
[2020-02-10 22:00] VITALS: BP 94/63
[2020-02-10] MEDS: ATORVASTATIN 20 MG TAB PO SCH (22:00)
[2020-02-11] MEDS: ACCU-CHEK COMFORT CURVE STRIP VI SCH ×5 (02:22→22:06)
[2020-02-11] MEDS: SODIUM CHLORIDE 0.9% 1,000 ML IV SCH ×3 (02:22→18:15)
[2020-02-11 05:00] VITALS: BP 157/97
--- NOTE | 2020-02-11 05:00 | NUR ---
NEURO STATUS Patient more alert this morning compared to initial assessment. Opens eyes to voice, able to nod head "yes" and shake head "no" when asked about her name, but unable to verbalize. Patient also able to move right upper extremity when asked, but no other limbs. Will continue to monitor
[2020-02-11] MEDS: BACLOFEN 10 MG TAB PO SCH ×3 (06:00→22:05)
--- NOTE | 2020-02-11 06:37 | NUR ---
NEURO STATUS Patient more alert this morning compared to initial assessment. Patient was able to verbalize first and last name when asked. Patient also able to move right upper extremity and right lower extremity when asked. Will continue to monitor Signed: 02/11/20 at 0644 by ZAKIA ESTRADA SN <Co-Signature Required> Co-Signed: 02/11/20 at 44 by Isaura Logan RN RN
[2020-02-11] MEDS: LEVOTHYROXINE SODIUM 100 MCG TAB PO SCH (06:46)
[2020-02-11] MEDS: InsuLIN REG 1unit/0.01ml Soln (100units/ml) SC SCH ×4 (06:46→22:00)
[2020-02-11] MEDS: metFORMIN HYDROCHLORIDE 500 MG TAB PO SCH ×3 (08:00→18:00)
[2020-02-11 09:00] VITALS: BP 152/81
[2020-02-11] MEDS: cefTRIAXone 1GM/50ML D5W 50 ML IV SCH (09:00)
[2020-02-11] MEDS: MEGESTROL ACET 400MG/10ML ORAL SUSP PO SCH (09:48)
[2020-02-11] MEDS: BENAZEPRIL HCL 10 MG TAB PO SCH (09:48)
[2020-02-11] MEDS: JARDIANCE 25 MG TABLET PO SCH (09:48)
[2020-02-11] MEDS: ATENOLOL 50 MG TAB PO SCH (09:48)
[2020-02-11] MEDS: MAGNESIUM OXIDE 400 MG TAB PO SCH (09:48)
--- NOTE | 2020-02-11 09:48 | NUR ---
CRUSHED AND GAVE PO MEDICATION IN APPLESAUCE. PATIENT DID NOT FINISH ALL THE MEGACE. TOOK 4 SIPS OF ENSURE AND A SPOON FULL OF OATMEAL, PATIENT TOLERATED WELL. WILL CONTINUE TO MONITOR.
[2020-02-11 13:00] VITALS: BP 137/78
[2020-02-11 17:00] VITALS: BP 144/80
--- NOTE | 2020-02-11 18:30 | NUR ---
Julian catheter insertion Patient assessed and determined to be in need of julian catheter. Order obtained from MD. Patient educated on catheter and reason for insertion. All questions answered. Julian catheter guage Korean inserted with clean sterile technique. Patient tolerated well.
--- NOTE | 2020-02-11 19:30 | NUR ---
Opening Shift Note Assumed care of patient, awake and alert. No S/S of distress/SOB or pain. Insructed on POC and to callfor assist PRN, will continue to monitor for changes Q1hr and PRN. Fall and safety precautions in place. Call light within reach.
--- NOTE | 2020-02-11 19:37 | NUR ---
ENDORSED CARE TO NIGHT WYATT MCCALULM WILL BE COLLECTED BY NIGHT RN.
--- NOTE | 2020-02-11 21:45 | NUR ---
BLOOD SUGAR\ Blood sugar checked at this time per MD order. First check; 57. Recheck; 65. Patient will be given Dextrose IV as ordered due to poor appetite
--- NOTE | 2020-02-11 21:55 | NUR ---
URINE Urine sample collected from julian cath via clean technique and sent to lab via bullet
[2020-02-11] MEDS: ATORVASTATIN 20 MG TAB PO SCH (22:05)
--- NOTE | 2020-02-11 22:10 | NUR ---
BLOOD SUGAR Dextrose IV given as ordered (see emar). Will recheck blood sugar approximately 1 hour
[2020-02-11 22:13] LABS: Urine Bacteria NONE SEEN /hpf (None Seen); Urine Blood 2+ /uL (Negative); Urine Mucus FEW (None Seen); Urine Specific Gravity 1.022 (1.001-1.035); Urine WBC 1 /hpf (0 - 5)
[2020-02-11 22:58] VITALS: BP 159/83
--- NOTE | 2020-02-11 23:40 | NUR ---
BLOOD SUGAR Blood sugar rechecked at this time; 164. No distress noted, will continue to monitor
[2020-02-12] MEDS: SODIUM CHLORIDE 0.9% 1,000 ML IV SCH ×2 (04:46→14:35)
[2020-02-12] MEDS: BACLOFEN 10 MG TAB PO SCH ×3 (05:13→22:36)
[2020-02-12] MEDS: LEVOTHYROXINE SODIUM 100 MCG TAB PO SCH (05:13)
[2020-02-12 05:56] VITALS: BP 160/88
--- NOTE | 2020-02-12 06:00 | NUR ---
EKG/CHG EKG taken at this time for pre-op protocol. EKG printed and placed in chart. CHG bath given at this time for pre-op. Complete linen change, gown changed, patient repositioned for comfort, tolerated well. Will continue to monitor
[2020-02-12] MEDS: InsuLIN REG 1unit/0.01ml Soln (100units/ml) SC SCH ×4 (06:17→22:00)
[2020-02-12] MEDS: ACCU-CHEK COMFORT CURVE STRIP VI SCH ×4 (06:17→22:38)
--- NOTE | 2020-02-12 07:00 | NUR ---
Opening Shift Note Assumed care of patient, awake and alert; verbalized "the room is too cold"; smiles on command; limbs flaccid; when turned on her left side health and safety inspector the bed rail , required assistance to release her vocational nursing instructor. No S/S of distress/SOB or pain.NPO for PEG tube placement. Will continue to monitor for changes Q1hr and PRN.
[2020-02-12 07:06] LABS: INR 1.05 (0.9-1.15); Partial Thromboplastin Time 29.4 sec (23.64-32.05)
[2020-02-12] MEDS: metFORMIN HYDROCHLORIDE 500 MG TAB PO SCH ×2 (08:00→15:19)
[2020-02-12] MEDS ORDERED: LIDOCAINE VISCOUS 2% 15ML UD ONE (08:16)
[2020-02-12] MEDS ORDERED: SODIUM CHLORIDE LOCK 10 ML ONE (08:16)
[2020-02-12] MEDS ORDERED: diphenhdrAMINE HCL 50 MG/1 ML VL ONE (08:17)
[2020-02-12] MEDS ORDERED: MIDAZOLAM HCL 5 MG/ML-1ML VIAL ONE (08:17)
[2020-02-12] MEDS ORDERED: fentaNYL CITRATE 100 MCG/2 ML VL ONE (08:18)
[2020-02-12 09:00] VITALS: BP 151/95
[2020-02-12] MEDS: cefTRIAXone 1GM/50ML D5W 50 ML IV SCH (09:00)
--- NOTE | 2020-02-12 09:35 | NUR ---
PATIENT TAKEN TO PROCEDURE TO HAVE PEG TUBE PLACED WITH DR. PIERSON VIA HOSPITAL BED, NO DISTRESS NOTED AT TIME PATIENT TOLERATED WELL, ENDORSED CARE TO PRE-OP CHRISTIN [place].
[2020-02-12] MEDS ORDERED: BENZOCAINE (DENTAL) 20 % SPRAY 60ML MT ONE (09:49)
[2020-02-12] MEDS ORDERED: ceFAZolin 1GM/50ML 50 ML IV ONE (09:58)
[2020-02-12] MEDS: BENAZEPRIL HCL 10 MG TAB PO SCH (10:00)
[2020-02-12] MEDS: MEGESTROL ACET 400MG/10ML ORAL SUSP PO SCH (10:00)
[2020-02-12] MEDS: ATENOLOL 50 MG TAB PO SCH (10:00)
[2020-02-12] MEDS: JARDIANCE 25 MG TABLET PO SCH (10:00)
[2020-02-12] MEDS: MAGNESIUM OXIDE 400 MG TAB PO SCH (10:00)
[2020-02-12] MEDS: PANTOPRAZOLE 40 MG/10 ML VIAL INJ IV SCH ×2 (10:15→22:36)
--- NOTE | 2020-02-12 10:25 | NUR ---
Opening Shift Note Assumed care of patient, awake and alert. Resting in bed laying on right side. No S/S of distress/SOB or pain. Will continue to monitor for changes Q1hr and PRN.
--- NOTE | 2020-02-12 11:03 | NUR ---
RETURNED FROM PEG TUBE PLACEMENT. RECEIVED BEDSIDE REPORT FROM OPERATING ROOM LETY RN. PATIENT S/P PEG TUBE, SITE CLEAN DRY AND INTACT PER DR PIERSON DO NOT USE UNTIL TOMORROW. PATIENT GROGGY, NON VERBAL, OPENS EYES TO VERBAL STIMULI, SMILES UPON REQUEST WILL NOT OPEN MOUTH FOR CRUSHED PO MEDICATIONS. VITAL R14 174/92 P59 T 98.6 O2% 99 ON 2LNC NO NON VERBAL SIGNS OF PAIN. PAGED DR GUNN FOR ORDERED TO MANAGE BP. WILL CONTINUE TO MONITOR.
[2020-02-12] MEDS ORDERED: cloNIDine 0.1 mg/24hr 7 DAY PATCH TD SCH (11:45)
--- NOTE | 2020-02-12 12:08 | NUR ---
RETURNED CALL. NEW ORDERS TO BE CARRIED OUT.
--- NOTE | 2020-02-12 12:09 | NUR ---
CLONIDINE PATCH PLACED ON LEFT SHOULDER PER DR EDIS GLASER, PATIENT REFUED PO MEDS AND PO INTAKE.
[2020-02-12 13:00] VITALS: BP 132/78
--- NOTE | 2020-02-12 14:38 | NUR ---
ENDRORSED CARE TO LAUREN WALLER AWAITING DR GUNN TO CALL BACK
[2020-02-12 17:03] VITALS: BP 159/96
--- NOTE | 2020-02-12 19:35 | NUR ---
Opening Shift Note Assumed care of patient, awake and alert. No S/S of distress/SOB or pain. Instructed on POC and to call for assist PRN, will continue to monitor for changes Q1hr and PRN. Bed in lowest locked position, safety precautions in place, call light within reach. Signed: 02/13/20 at 043 by ZAKIA GREEN SN <Co-Signature Required> Co-Signed: 02/13/20 at 432 by Isaura Logan RN RN
[2020-02-12 22:00] VITALS: BP 140/73
[2020-02-12] MEDS: ATORVASTATIN 20 MG TAB PO SCH (22:37)
[2020-02-13] MEDS: SODIUM CHLORIDE 0.9% 1,000 ML IV SCH ×3 (04:32→20:53)
[2020-02-13 05:00] VITALS: BP 155/91
[2020-02-13] MEDS: BACLOFEN 10 MG TAB PO SCH ×3 (05:21→22:36)
[2020-02-13] MEDS: LEVOTHYROXINE SODIUM 100 MCG TAB PO SCH (05:29)
[2020-02-13] MEDS: ACCU-CHEK COMFORT CURVE STRIP VI SCH ×4 (06:59→22:37)
[2020-02-13] MEDS: InsuLIN REG 1unit/0.01ml Soln (100units/ml) SC SCH ×4 (06:59→22:00)
--- NOTE | 2020-02-13 07:15 | NUR ---
Opening Shift Note Assumed care of patient, awake and alert; verbalized "the room is too cold"; smiles on command; limbs flaccid; when turned on her left side sanitation tank washer the bed rail , required assistance to release her planer operator. No S/S of distress/SOB or pain.NPO for PEG tube placement. Will continue to monitor for changes Q1hr and PRN.
[2020-02-13] MEDS: metFORMIN HYDROCHLORIDE 500 MG TAB PO SCH ×2 (08:00→18:00)
[2020-02-13 08:48] VITALS: BP 114/68
[2020-02-13] MEDS: MEGESTROL ACET 400MG/10ML ORAL SUSP PO SCH (10:00)
[2020-02-13] MEDS: ATENOLOL 50 MG TAB PO SCH (10:00)
[2020-02-13] MEDS: BENAZEPRIL HCL 10 MG TAB PO SCH (10:00)
[2020-02-13] MEDS: PANTOPRAZOLE 40 MG/10 ML VIAL INJ IV SCH ×2 (10:00→22:36)
[2020-02-13] MEDS: MAGNESIUM OXIDE 400 MG TAB PO SCH (10:00)
[2020-02-13] MEDS: JARDIANCE 25 MG TABLET PO SCH (10:00)
--- NOTE | 2020-02-13 10:00 | NUR ---
PATIENT REFUSED AM MEDS WOULD NOT OPEN MOUTH MD GUNN AWARE.
--- NOTE | 2020-02-13 11:30 | NUR ---
PEG TUBE OK TO USE PER DR PIERSON.
[2020-02-13] MEDS: cefTRIAXone 1GM/50ML D5W 50 ML IV SCH (12:20)
[2020-02-13 13:00] VITALS: BP 172/99
[2020-02-13 16:57] VITALS: BP 156/97
--- NOTE | 2020-02-13 17:10 | NUR ---
Nutrition Followup Notes Pt wt is 65.4 kg. Pt was sleeping when rounded this am. Pt is on a MSoft diet with a negligible appetite aeb <3% of meals eaten in two days. Pt with peg tube placed on 02/11, active for tube feeding. RECOMMEND Glucerna 1.2 @ 40 ml/hr goal rate as tolerated. Pt with no noted distress per RN doc. Will continue to closely monitor pertinent labs, PO intake and skin status prn. Will followup in 3-5 days Please refer to recommendations noted under Comments. Est Energy needs: 5496-4892 kcals (20-23 kcal/kgBW) Est Protein needs: 60-66 gms/day (1.0-1.1 gm/kgBW) Will continue to monitor and reassess prn. LABS: All labs WNL GI: 1 BM on 02/12 per RN doc. BS: 11 high risk, pt s/p Peg tube placement on 02/12/20. Please refer to wound assessment report for full details. PES: Problem Inadequate oral intake r/t pt with poor appetite aeb ave 38% PO intake Comments Will continue to closely monitor pertinent labs, PO intake and skin status prn. Will followup in 3-5 days 1) Continue to closely monitor and assist pt PO intake to meet at least 75% of meals 2) If pt appetite remains poor (<50% PO intake) consider supplemental nutrition support 3) Suggest Glucerna 1.2 @ 40 ml/hr goal rate as tolerated 3) Continue current plan of care
--- NOTE | 2020-02-13 18:00 | NUR ---
TUBE FEEDING CONTACTED PHARMACY REGARDING TUBE FEEDING. OF NOW DIETARY WILL CONTACT PHARMACY WHEN FEEDING IS READY TO BE ORDERED.
--- NOTE | 2020-02-13 18:57 | NUR ---
ENDORSED CARE TO NIGHT RN UPDATED ON TUBE FEEDING
[2020-02-13 22:00] VITALS: BP 106/67
[2020-02-13] MEDS: ATORVASTATIN 20 MG TAB PO SCH (22:37)
[2020-02-14 05:00] VITALS: BP 131/79
[2020-02-14] MEDS: SODIUM CHLORIDE 0.9% 1,000 ML IV SCH ×2 (06:57→17:39)
[2020-02-14] MEDS: BACLOFEN 10 MG TAB PO SCH ×3 (06:57→22:57)
[2020-02-14] MEDS: LEVOTHYROXINE SODIUM 100 MCG TAB PO SCH (06:57)
[2020-02-14] MEDS: ACCU-CHEK COMFORT CURVE STRIP VI SCH ×4 (06:58→22:00)
[2020-02-14] MEDS: InsuLIN REG 1unit/0.01ml Soln (100units/ml) SC SCH ×4 (06:58→22:00)
[2020-02-14] MEDS: metFORMIN HYDROCHLORIDE 500 MG TAB PO SCH ×2 (08:00→17:40)
--- NOTE | 2020-02-14 08:00 | NUR ---
OPENING SHIFT NOTE ASSUMED CARE OF PATIENT AWAKE AND ALERT X3. NO S/S OF DISTRESS NOTED OR COMPLAINTS OF PAIN. PATIENT UPDATED ON POC FOR THE DAY. BED IS IN LOWEST, LOCKED POSITION WITH SIDE RAILS UP X2 AND CALL LIGHT WITHIN REACH. BED ALARM ON FOR SAFETY. WILL CONTINUE TO MONITOR Q1H AND PRN.
--- NOTE | 2020-02-14 08:27 | NUR ---
DIETARY PLACED CALL TO DIETARY, SPOKE WITH PARKER REGARDING DIETARY CONSULT TO START TUBE FEEDINGS. PER PARKER SHE WILL HAVE A TEST INSPECTION ENGINEER CONSULT WITH THE PATIENT AND GIVE ME A CALL BACK.
--- NOTE | 2020-02-14 08:29 | NUR ---
Consult for TF Recommend Glucerna 1.2 @ 40 ml/hr for TF per MD approval.
--- NOTE | 2020-02-14 08:34 | NUR ---
TUBE FEEDING RECEIVED CALL BACK FROM DIETARY. RECOMMENDATION IS GLUCERNA 1.2 @ 40ML/HR. ORDER TO BE PLACED BY THIS RN.
[2020-02-14] MEDS ORDERED: Glucerna 1.2 Cal 1Liter BOTTLE GT SCH (08:45)
[2020-02-14 08:53] VITALS: BP 146/77
--- NOTE | 2020-02-14 09:30 | NUR ---
CALL TO DIETARY CALLED DIETARY TO SEND UP TUBE FEEDING ORDERED.
[2020-02-14] MEDS: JARDIANCE 25 MG TABLET PO SCH (10:00)
[2020-02-14] MEDS: MAGNESIUM OXIDE 400 MG TAB PO SCH (10:15)
[2020-02-14] MEDS: cefTRIAXone 1GM/50ML D5W 50 ML IV SCH (10:15)
[2020-02-14] MEDS: PANTOPRAZOLE 40 MG/10 ML VIAL INJ IV SCH ×2 (10:15→22:57)
[2020-02-14] MEDS: BENAZEPRIL HCL 10 MG TAB PO SCH (10:15)
[2020-02-14] MEDS: MEGESTROL ACET 400MG/10ML ORAL SUSP PO SCH (10:16)
[2020-02-14] MEDS: ATENOLOL 50 MG TAB PO SCH (10:16)
--- NOTE | 2020-02-14 10:30 | NUR ---
Pt declined PT tx today. Addendum: 02/14/20 at 1216 by Michi Nascimento MUSIC ARRANGER Amended: Links added.
--- NOTE | 2020-02-14 10:34 | NUR ---
REPEAT CALL TO DIETARY CALLED DIETARY AGAIN TO REQUEST TUBE FEEDING BE SENT UP.
[2020-02-14 12:45] VITALS: BP 153/73
--- NOTE | 2020-02-14 14:47 | NUR ---
D/C Planning Regarding consult for hospital bed, wheelchair, walker, and bedside commode. Faxed clinical information to [facility]. Per Edie with [facility] [phone] they will deliver walker and wheelchair to bedside and they contact patient to arrange time of delivery for hospital bed and bedside commode. Regarding consult for home health physical therapy. Faxed clinical information to [facility]. Per Flores with [facility] [phone] patient has been accepted and they will see patient within 24-48hrs upon d/c day. Informed patient Mukul. Mukul verbalize understanding d/c plan.
[2020-02-14 16:44] VITALS: BP 147/81
--- NOTE | 2020-02-14 19:40 | NUR ---
Opening Shift Note Assumed care of patient, eyes closed, respirations even and unlabored, appears asleep. No S/S of distress/SOB or pain. Bed in lowest locked position, side rails up x2, call light within reach, bed alarm on. Patient on specialty mattress, tolerating well. Legs also elevated on pillow to float heels. Patient receiving Glucerna via PEG tube, tolerating well. Instructed on POC and to call for assist PRN, will continue to monitor for changes Q1hr and PRN. Addendum: 02/16/20 at 0156 by NAZ WANG RN RN CORRECTION: Glucerna feeding stopped at time of original note. Residual checked an hour later, no residual noted. Glucerna restarted as ordered and care continued.
[2020-02-14 22:00] VITALS: BP 130/70
[2020-02-14] MEDS: ATORVASTATIN 20 MG TAB PO SCH (22:57)
[2020-02-15] MEDS: SODIUM CHLORIDE 0.9% 1,000 ML IV SCH ×3 (01:37→22:15)
[2020-02-15 05:00] VITALS: BP 123/69
[2020-02-15] MEDS: LEVOTHYROXINE SODIUM 100 MCG TAB PO SCH (07:14)
[2020-02-15] MEDS: BACLOFEN 10 MG TAB PO SCH ×3 (07:14→23:23)
[2020-02-15] MEDS: ACCU-CHEK COMFORT CURVE STRIP VI SCH ×4 (07:14→22:00)
[2020-02-15] MEDS: InsuLIN REG 1unit/0.01ml Soln (100units/ml) SC SCH ×4 (07:26→23:57)
--- NOTE | 2020-02-15 07:33 | NUR ---
Closing Note Patient lying in bed, eyes closed, respirations even and unlabored, appears asleep. Patient awakens to name and touch. Bed in lowest locked position, side rails up x2, call light within reach. No s/s of distress. Care endorsed to dayshift RN.
[2020-02-15] MEDS: metFORMIN HYDROCHLORIDE 500 MG TAB PO SCH ×2 (08:00→18:30)
[2020-02-15 09:00] VITALS: BP 139/72
[2020-02-15] MEDS: JARDIANCE 25 MG TABLET PO SCH (10:00)
[2020-02-15] MEDS: MAGNESIUM OXIDE 400 MG TAB PO SCH (10:31)
[2020-02-15] MEDS: BENAZEPRIL HCL 10 MG TAB PO SCH (10:31)
[2020-02-15] MEDS: MEGESTROL ACET 400MG/10ML ORAL SUSP PO SCH (10:32)
[2020-02-15] MEDS: cefTRIAXone 1GM/50ML D5W 50 ML IV SCH (10:32)
[2020-02-15] MEDS: PANTOPRAZOLE 40 MG/10 ML VIAL INJ IV SCH ×2 (10:32→23:23)
[2020-02-15] MEDS: ATENOLOL 50 MG TAB PO SCH (10:32)
[2020-02-15 13:00] VITALS: BP 146/71
--- NOTE | 2020-02-15 14:10 | NUR ---
D/C Planning [facility] will deliver hospital bed and bedside commode to home between 15:00-18:00 today patient Mukul is aware. [facility] deliver walker and wheelchair to bedside. Home health was completed yesterday and [facility] has accepted. Informed patient Mukul regarding home health acceptance and delivery for the DME. Informed CHRISTIN Crane.
--- NOTE | 2020-02-15 14:58 | NUR ---
1458 02/15/20 Informed SS worker Lexy and Rosa Maria WALLER assigned to patient that [facility] abmulance service had been contacted and placed on Will Call status.
--- NOTE | 2020-02-15 16:59 | NUR ---
Advised CHRISTIN Crane to provide supplies for peg tube feeding for patient and to teach patient . [facility] will see patient tomorrow.
--- NOTE | 2020-02-15 17:05 | NUR ---
Spoke to Dr Morgan regarding discharge. Per MD Morgan states wv home with HH tomorrow, soft diet and feed patient, Glucerna feeding 250ML GT TID followed by Free water 300ml GT TID. Patient's notified and verbalized understanding. Per manager residential [facility] transport is placed on will call and can set up a time in the morning for cigar packer and picker. Per social worker clinical [facility] equipment sent home and delivery for [phone] to pt's home today and HH start services with [facility] tomorrow. Wheelchair and walker delivered to bedside and will be sent home with patient. Will cont care
[2020-02-15 17:15] VITALS: BP 139/74
--- NOTE | 2020-02-15 19:00 | NUR ---
Opening Shift Note Assumed care of patient, eyes closed, respirations even and unlabored, appears asleep. No S/S of distress/SOB or pain. Bed in lowest locked position, side rails up x2, call light within reach, bed alarm on. Patient on specialty mattress, tolerating well. Legs also elevated on pillow to float heels. Instructed on POC and to call for assist PRN, will continue to monitor for changes Q1hr and PRN.
--- NOTE | 2020-02-15 19:00 | NUR ---
Patient care endorsed to Farrah ugarte including dc order and dc instructions. Patient sitting up in high Fowlers being fed dinner and tolerating well. No distress or sob noted.
--- NOTE | 2020-02-15 19:25 | NUR ---
Continual feeding of Glucerna stopped at this time. PEG tube clamped. Patient tolerated well. Will continue care.
[2020-02-15 21:00] VITALS: BP 134/76
[2020-02-15] MEDS: Glucerna 1.2 Cal 1Liter BOTTLE GT SCH (23:22)
[2020-02-15] MEDS: ATORVASTATIN 20 MG TAB PO SCH (23:23)
--- NOTE | 2020-02-16 01:53 | NUR ---
No residual noted from PEG tube at this time. 250 ml of Glucerna administered as ordered, followed by 300 ml of free water as ordered. Patient tolerated well. Will continue care.
[2020-02-16 04:30] VITALS: BP 139/70
[2020-02-16] MEDS: LEVOTHYROXINE SODIUM 100 MCG TAB PO SCH (06:56)
[2020-02-16] MEDS: Glucerna 1.2 Cal 1Liter BOTTLE GT SCH ×2 (06:56→15:41)
[2020-02-16] MEDS: BACLOFEN 10 MG TAB PO SCH ×2 (06:56→14:00)
[2020-02-16] MEDS: ACCU-CHEK COMFORT CURVE STRIP VI SCH ×2 (06:56→13:13)
[2020-02-16] MEDS: InsuLIN REG 1unit/0.01ml Soln (100units/ml) SC SCH ×2 (07:00→13:10)
[2020-02-16] MEDS: metFORMIN HYDROCHLORIDE 500 MG TAB PO SCH (08:00)
--- NOTE | 2020-02-16 08:00 | NUR ---
PT BS 95, METFORMIN HELD.
[2020-02-16 09:00] VITALS: BP 136/69
[2020-02-16] MEDS: JARDIANCE 25 MG TABLET PO SCH (10:00)
--- NOTE | 2020-02-16 10:06 | NUR ---
PT REPOSITIONED TO LEFT SIDE WITH PILLOW. PT GIVEN 250 MLS GLUCERNA AND 300 MLS FREE WATER THROUGH PEG TUBE, WILL CHECK RESIDUAL IN ONE TO TWO HOURS.
[2020-02-16] MEDS: SODIUM CHLORIDE 0.9% 1,000 ML IV SCH (10:25)
[2020-02-16] MEDS: MAGNESIUM OXIDE 400 MG TAB PO SCH (10:26)
[2020-02-16] MEDS: cefTRIAXone 1GM/50ML D5W 50 ML IV SCH (10:26)
[2020-02-16] MEDS: PANTOPRAZOLE 40 MG/10 ML VIAL INJ IV SCH (10:26)
[2020-02-16] MEDS: BENAZEPRIL HCL 10 MG TAB PO SCH (10:27)
[2020-02-16] MEDS: ATENOLOL 50 MG TAB PO SCH (10:28)
[2020-02-16] MEDS: MEGESTROL ACET 400MG/10ML ORAL SUSP PO SCH (10:28)
--- NOTE | 2020-02-16 10:59 | NUR ---
PT HAD SMALL LIQUID AND FORMED LIGHT BROWN BM, PT CLEANED. WILL CONTINUE TO MONITOR.
--- NOTE | 2020-02-16 11:08 | NUR ---
CALLED СЕРГЕЙ MINDI, SHE REPORTS TO HAVE COME IN TO SHOW HM HOW TO DO PT FEEDINGS. THEN TO CALL [facility] FOR TRANSPORT. SHE REPORTS EVERYTHING IS IN PLACE AND PATIENT CAN GO HOME. REPORTS HOME EQUIPMENT HAS BEEN DELIVERED AND SS NOTE REPORTS PT HAS BEEN ACCEPTED BY [facility].
--- NOTE | 2020-02-16 11:54 | NUR ---
CALLED PT AND ASKED HIM TO COME IN TO EDUCATE HIM ON HOW TO FEED PATIENT AT HOME. REPORTS HE WILL COME WITHIN 1 HOUR.
--- NOTE | 2020-02-16 11:56 | NUR ---
LEFT MESSAGE WITH DR GUNN TO SEE IF PT WILL DC WITH MD COLE CALLED BACK AND REPORTS TO DC WITH COLE.
--- NOTE | 2020-02-16 12:22 | NUR ---
Assessed pt o2 saturation on RA, o2 97%. Approx 500 mls orange clear urine drained from Johns. Assessed residual gastric contents, approx 100 mls Glucerna still present in stomach. Contents reinserted and peg tube flushed with 30 mls free water, then clamped.
--- NOTE | 2020-02-16 12:43 | NUR ---
PT AT BEDSIDE. EDUCATED TAMEKA ON HOW TO FEED PATIENT THROUGH PEG TUBE, HOW TO CLAMP AND UN-CLAMP, TO ENSURE PT IS SITTING IN UPRIGHT POSITION FOR AT LEAST 2 HOURS DURING AND AFTER FEEDING, HOW TO MEASURE GLUCERNA AND WATER WITH SYRINGE AND BOTTLE, HOW TO CHECK PEG TUBE SITE FOR REDNESS AND SWELLING. NOTIFIED TAMEKA PT IS TO HAVE 250 MLS GLUCERNA AND 300 MLS FREE WATER 3 TIMES A DAY. SHOWED TAMEKA HOW TO CHECK FOR RESIDUAL AND MAKE SURE PATIENT IS TOLERATING FEEDING. SHOWED TAMEKA HOW TO EMPTY GALVAN CATHETER AND CORRECT PLACEMENT.
--- NOTE | 2020-02-16 12:50 | NUR ---
SHOWED TAMEKA HOW TO ENSURE GALVAN TUBING IS FREE OF KINKS AND SHOULD BE HUNG BELOW PATIENT.
[2020-02-16 13:00] VITALS: BP 148/68
--- NOTE | 2020-02-16 13:21 | NUR ---
MRSA SWAB SENT TO LAB.
--- NOTE | 2020-02-16 13:22 | NUR ---
EDUCATED TAMEKA PT IS TO BE TURNED Q 2 HOURS WITH PILLOW UNDER SACRUM ON RIGHT AND LEFT SIDES.
--- NOTE | 2020-02-16 13:34 | NUR ---
Called [facility], they report the soonest they can corn picker patient is 1630.
--- NOTE | 2020-02-16 13:53 | NUR ---
PT MEDS TAKEN FROM PHARMACY AND GIVEN TO PT , HE REPORTS HE WILL ALSO BRING HOME PT WHEEL CHAIR. PT NOTIFIED [facility] WILL VOCATIONAL PLACEMENT SPECIALIST PT AT 1430 TO BRING HOME.
--- NOTE | 2020-02-16 16:30 | NUR ---
Discharge instructions given as ordered. Encourage to follow up with PMD as instructed. All questions and concerns addressed. Patient verbalized understanding. Medication reconciliation form completed and copy given to patient . Home medications held in Pharmacy returned to patient . IV removed with catheter intact, pressure dressing applied, Johns catheter remained per MD order. Patient taken to [employer] vehicle via gurney with all personal belongings. No distress noted at time of departure. Addendum: 02/16/20 at 1703 by BLAIR LOUIE RN at 1650
--- NOTE | 2020-02-16 16:42 | NUR ---
ASSESSED RESIDUAL GASTRIC CONTENTS, LESS THAN 100 MLS NOTED. CONTENTS PLACED BACK IN STOMACH, PEG TUBE FLUSHED AND CLAMPED. PT HAD ANOTHER SMALL FORMED LIGHT BROWN BM, PT CLEANED. APPROX 600 MLS DRAINED FROM GALVAN. [facility] HERE TO UNIT LEADER PATIENT.
--- NOTE | 2020-02-16 16:43 | NUR ---
SYRINGE AND MEASURING BOTTLE, EXTRA CHUCKS AND PT CLOTHES SENT WITH PATIENT HOME. DC PAPERWORK SIGNED BY AND SENT HOME WITH HIM.
== END 2020-02-16 17:00 | disposition home health service (06) | DRG 64 ==
LOC: WEST WING 11:00
PROVIDERS: ADMIT Internal Medicine Cardiovascular Disease; ATTEND Internal Medicine Cardiovascular Disease
PROC: 0DH63UZ Insertion of Feeding Device into Stomach, Percutaneous Approach (ICD-10-PCS; principal; 2020-02-12 09:46)
DX: I63.9 Cerebral infarction, unspecified (principal); E43 Unspecified severe protein-calorie malnutrition; G93.41 Metabolic encephalopathy; G81.94 Hemiplegia, unspecified affecting left nondominant side; I10 Essential (primary) hypertension; E11.9 Type 2 diabetes mellitus without complications; E86.9 Volume depletion, unspecified; K29.70 Gastritis, unspecified, without bleeding; Z79.01 Long term (current) use of anticoagulants; Z86.73 Personal history of transient ischemic attack (TIA), and cerebral infarction without residual deficits; Z20.828 Contact with and (suspected) exposure to other viral communicable diseases; Z68.20 Body mass index [BMI] 20.0-20.9, adult
CPT/HCPCS: 36415; 36600; 43246; 71045; 80053; 81001; 82805; 82962; 85025; 85610; 85730; 86850; 86900; 86901; 87081; 92610; 97110; 97163; 97530; C9113; G0378; J0690; J0696; J1815; J2250

== ENCOUNTER 2020-05-20 10:43 | Inpatient (IN) | payer OTHER ==
[~2020-05-20] VITALS: Ht 152.4 cm; Wt 53.1 kg
[~2020-05-20 10:43] MED LIST changes: +ATOR40TA52 PO; +BENA5TAB5 PO; +EMPA1TAB3 PO; +HEPA10004 IJ; +LEVO100T8 PO
[2020-05-20] MEDS ORDERED: DIPHENOXYLATE W/ATROPINE 2.5 MG TAB PO ONE (11:45)
[2020-05-20] MEDS ORDERED: SODIUM CHLORIDE 0.9% 1,000 ML IV ONE (11:45)
[2020-05-20 12:18] LABS: Basophils # (auto) 0.1 10 ^3/uL (0-0.2); Basophils % (auto) 0.9 % (0.0-2.0); Eosinophils # (auto) 0.1 10 ^3/uL (0-0.8); Eosinophils % (auto) 0.7 % (0.0-7.0); Hematocrit 37.8 % (36.0-46.0); Hemoglobin 12.6 g/dL (12.2-16.2); Lymphocytes # (auto) 1.1 10 ^3/uL (0.4-5.4); Mean Corpuscular Hemoglobin 30.6 pg (28.0-32.0); Mean Corpuscular Hgb Conc. 33.2 g/dL (32.0-36.0); Mean Corpuscular Volume 91.9 fL (80.0-100.0); Monocytes # (auto) 0.4 10 ^3/uL (0-1.3); Monocytes % (auto) 6.4 % (0.0-12.0); Neutrophils # (auto) 5.3 10 ^3/uL (1.6-8.6); Platelet Count (auto) 429 10^3/uL (140-450); Red Blood Cells 4.12 10^6/uL (4.0-5.20); Red Cell Distribution Width 13.8 % (11.8-14.3)
[2020-05-20 12:33] LABS: Potassium 4.1 mmol/L (3.5-5.1)
[2020-05-20 12:49] LABS: Albumin 3.4 g/dL (3.4-5.0); BUN/Creatinine Ratio 17.6; Bilirubin, Total 0.3 mg/dL (0.2-1.0); Total Protein 7.5 g/dL (6.4-8.2)
[2020-05-20] MEDS: SODIUM CHLORIDE 0.9% 1,000 ML IV SCH (14:45)
[2020-05-20] MEDS ORDERED: metroNIDAZOLE 500MG/100ML 100 ML IV ONE (14:45)
[2020-05-20] MEDS ORDERED: LACTATED RINGER'S 1,000 ML IV ONE (14:45)
[2020-05-20] MEDS ORDERED: HYDROcodone-ACET 5/325MG TAB PO PRN (15:30)
[2020-05-20] MEDS ORDERED: DOCUSATE SOD 100 MG CAP PO PRN (15:30)
[2020-05-20] MEDS ORDERED: MEGESTROL ACET 400MG/10ML ORAL SUSP PO ONE (15:30)
[2020-05-20] MEDS ORDERED: DEXTROSE (50%) 50ML SYRG IV PRN (15:30)
[2020-05-20] MEDS ORDERED: ONDANSETRON HCL 4 MG/2 ML VIAL IV PRN (15:30)
[2020-05-20] MEDS ORDERED: ALUM & MAG HYDROX-SIMETH LIQ(MAALOX) 30 ML PO PRN (15:30)
[2020-05-20] MEDS ORDERED: METOPROLOL SUCCINATE XL 50 MG TAB PO ONE (15:30)
[2020-05-20] MEDS ORDERED: MORPHINE SULF INJ 2 MG/ML SYRINGE 1ML IV PRN ×2 (15:30)
[2020-05-20] MEDS ORDERED: DIPHENOXYLATE W/ATROPINE 2.5 MG TAB PO PRN (15:30)
[2020-05-20] MEDS ORDERED: LISINOPRIL 10 MG TAB PO ONE (15:30)
[2020-05-20] MEDS ORDERED: ACETAMINOPHEN 325 MG TAB PO PRN (15:30)
[2020-05-20] MEDS ORDERED: LORazepam 0.5 MG TAB PO PRN (15:30)
[2020-05-20] MEDS ORDERED: NITROGLYCERIN 0.4 MG SL TAB SL PRN (15:30)
[2020-05-20 15:52] LABS: Cholesterol 101 mg/dL (< 200); Triglycerides 84 mg/dL (< 150)
[2020-05-20 15:55] LABS: HDL Cholesterol 37 mg/dL (40-59); LDL Cholesterol 60 mg/dL (< 100)
[2020-05-20 17:40] VITALS: BP 141/97
--- NOTE | 2020-05-20 17:50 | NUR ---
ADMISSION INFORMATION OBTAINED FROM [facility]
[2020-05-20] MEDS: InsuLIN REG 1unit/0.01ml Soln (100units/ml) SC SCH (18:00)
--- NOTE | 2020-05-20 19:00 | NUR ---
wound photos taken
[2020-05-20] MEDS: ACCU-CHEK COMFORT CURVE STRIP VI SCH (19:14)
--- NOTE | 2020-05-20 19:29 | NUR ---
endorsed care to night rn
[2020-05-20] MEDS: Glucerna Carbsteady SHAKE Stawberry 8oz GT SCH ×2 (19:30→22:00)
[2020-05-20 22:00] VITALS: BP 126/69
[2020-05-20] MEDS: MEGESTROL ACET 400MG/10ML ORAL SUSP PO SCH (22:08)
[2020-05-20] MEDS: metroNIDAZOLE 500MG/100ML 100 ML IV SCH (22:08)
[2020-05-20] MEDS: ATORVASTATIN 20 MG TAB PO SCH (22:08)
[2020-05-20] MEDS: MAGNESIUM OXIDE 400 MG TAB PO SCH (22:08)
[2020-05-21] MEDS: ACCU-CHEK COMFORT CURVE STRIP VI SCH ×4 (00:01→17:11)
[2020-05-21] MEDS: SODIUM CHLORIDE 0.9% 1,000 ML IV SCH (04:05)
[2020-05-21 05:04] VITALS: BP 149/86
[2020-05-21 05:55] LABS: Magnesium 1.8 mg/dL (1.6-2.6)
[2020-05-21] MEDS: InsuLIN REG 1unit/0.01ml Soln (100units/ml) SC SCH ×4 (06:00→17:14)
[2020-05-21] MEDS: Glucerna Carbsteady SHAKE Stawberry 8oz GT SCH (06:00)
[2020-05-21] MEDS: metroNIDAZOLE 500MG/100ML 100 ML IV SCH (06:16)
[2020-05-21] MEDS: LEVOTHYROXINE SODIUM 100 MCG TAB PO SCH (06:16)
--- NOTE | 2020-05-21 07:55 | NUR ---
Opening Shift Note Assumed care of patient, sitting up awake and alert. F/C intact and patent. Bed locked and in lowest position call light in reach. No S/S of distress/SOB or pain. Instructed on POC and to call for assist PRN, will continue to monitor for changes Q1hr and PRN.
[2020-05-21 08:37] LABS: Urine Amorphous Crystal FEW /hpf (None Seen); Urine Bacteria MANY /hpf (None Seen); Urine Blood 2+ /uL (Negative); Urine Mucus FEW (None Seen); Urine Specific Gravity 1.008 (1.001-1.035); Urine WBC 165 /hpf (0 - 5); Urine WBC Clumps PRESENT /hpf (None Seen)
[2020-05-21 08:58] LABS: Alcohol, Urine < 3.0 mg/dL (0-10); Amphetamine Screen, Urine NEGATIVE (NEGATIVE); Barbiturate Scree,Urine NEGATIVE (NEGATIVE); Benzodiazephine Screen, Urine NEGATIVE (NEGATIVE); Cannabinoid Screen, Urine NEGATIVE (NEGATIVE); Cocaine Screen, Urine NEGATIVE (NEGATIVE); Opiate Scree,Urine NEGATIVE (NEGATIVE); Phencyclidine Screen, Urine NEGATIVE (NEGATIVE)
[2020-05-21 09:00] VITALS: BP 135/78
[2020-05-21] MEDS: MAGNESIUM OXIDE 400 MG TAB PO SCH (10:01)
[2020-05-21] MEDS: MEGESTROL ACET 400MG/10ML ORAL SUSP PO SCH ×2 (10:01→22:00)
[2020-05-21] MEDS: ASPirin 81 mg TAB PO SCH (10:01)
[2020-05-21] MEDS: SERTRALINE HCL 50 MG TAB PO SCH (10:02)
[2020-05-21] MEDS: LISINOPRIL 10 MG TAB PO SCH (10:03)
[2020-05-21] MEDS: METOPROLOL SUCCINATE XL 50 MG TAB PO SCH (10:04)
[2020-05-21] MEDS: ENOXAPARIN SOD 40 MG/0.4 ML SYRINGE SC SCH (10:04)
[2020-05-21] MEDS: FLORASTOR (S. BOULARDII) 250 MG CAP PO SCH (10:10)
--- NOTE | 2020-05-21 10:11 | NUR ---
ss consult Per ss consult advanced directive information. Patient has been given advanced directive by bedside nurse. Addendum: 05/21/20 at 1013 by Lexy OBREGON Amended: Links added.
--- NOTE | 2020-05-21 11:55 | NUR ---
WOUND CARE NOTE: Wound care in to see patient per wound care request regarding low Kannan score of 13 and skin integrity issue that are noted upon admission. Bedside nurse took photograph of patient's skin issue upon admission for reference. Patient is 80 y/o female admitted for Acute Diarrhea to R/O C Diff, Colitis. Patient is resting in bed in Rm. 206. Patient is awake and not oriented. Patient appears to be in no pain using Santos Cortez Faces Pain Scale. She's total assist in ADL's. Skin assessment done with the help of nurse painter assistant, Dinorah. No open wound noted, other than mild erythema to sacral, buttocks (mild moisture associated dermatitis) from diarrhea. Patient is receiving BID/PRN cleaning and application of Z Guard cream to sacral, buttocks with sacral Opti foam dressing to upper sacrum as preventative. Patient's L lateral hip noted with brown hyperpigmented skin, area is clean and dry,asymptomatic, left open to air. Blanchable erythema also noted to patient's distal Lt lateral foot. Repositioned patient for comfort facing her Rt. side, redistributed pressure points with pillows and elevated heels on pillows. Patient tolerated well. Bed in low position, bed alarm on. RECOMMENDATION: Nursing to continue with BID/PRN cleaning and application of Barrier cream to sacral, buttocks per MD order, frequent turning and repositioning schedule as condition permits, redistribute pressure points with pillows, frequent viri care/check, keep clean and dry, continue monitoring by wound care while patient is hospitalized. Addendum: 05/21/20 at 1616 by Di Lucas RN Amended: Links added.
--- NOTE | 2020-05-21 12:00 | NUR ---
Nutrition consult/assessment Note please see attached link for complete assessment Est energy needs BW 56 [id number] kcal (25-30 kcal/kg BW), Est protein needs 56-67g (1.0-1.2g/kg BW). Will reassess prn. Addendum: 05/21/20 at [address] Amended: Links added.
[2020-05-21 12:24] VITALS: BP 91/62
--- NOTE | 2020-05-21 12:27 | NUR ---
DR GONZALEZ AT BEDSIDE. NEW ORDERS RECEIVED.
--- NOTE | 2020-05-21 12:28 | NUR ---
PER DR GONZALEZ, WE WILL WAIT AND SEE IF THE PATIENT EATS WELL ON A PUREE DIET BEFORE WE START THE PEG FEEDING.
[2020-05-21] MEDS ORDERED: cefTRIAXone 1GM/50ML D5W 50 ML IV ONE (12:30)
[2020-05-21 16:37] VITALS: BP 111/65
--- NOTE | 2020-05-21 18:54 | NUR ---
PATIENT CARE ENDORSED TO CHRISTIN LEE. PATIENT SHOWS NO SIGNS OF DISTRESS AT THIS TIME.
--- NOTE | 2020-05-21 19:30 | NUR ---
Opening Shift Note Assumed care of patient, awake and alert, but speaking infrequently and only 1 - 4 word phrases or sentences. Most frequently no S/S of distress/SOB or pain. Instructed on POC and to call for assist PRN, will continue to monitor for changes Q1hr and PRN. Nurse call light by pt's arm within reach of R hand. Bed low.
[2020-05-21 21:45] VITALS: BP 147/91
[2020-05-21] MEDS: ATORVASTATIN 20 MG TAB PO SCH (22:00)
[2020-05-22] MEDS: ACCU-CHEK COMFORT CURVE STRIP VI SCH ×4 (00:19→18:50)
--- NOTE | 2020-05-22 05:21 | NUR ---
Pt has told this RN and then ACCESS CLINICIAN she has pain, but she is unable to state any more; therefore, Zofran 4mg and Morphine 2mg IV was given IVP w/o diff. Pt resting with eyes closed, roused sl. then again resumed rest.
[2020-05-22 05:24] VITALS: BP 144/95
[2020-05-22 05:29] VITALS: BP_SYST 110; BP_SYST 144; BP_DIAS 60; BP_DIAS 95
[2020-05-22] MEDS: InsuLIN REG 1unit/0.01ml Soln (100units/ml) SC SCH ×4 (06:00→18:00)
[2020-05-22] MEDS: LEVOTHYROXINE SODIUM 100 MCG TAB PO SCH (06:59)
--- NOTE | 2020-05-22 07:00 | NUR ---
OPENING SHIFT NOTE RECEIVED REPORT ON THE PATIENT. AWAKE LYING IN BED. PATIENT SHOWS NO SIGNS OF DISTRESS. DISCUSSED PLAN OF CARE WITH THE PATIENT, BUT SHE DID NOT COMPREHEND. BED IN LOWEST POSITION, SIDE RAILS UP X2, AND CALL LIGHT IS WITHIN REACH.
[2020-05-22] MEDS: cefTRIAXone 1GM/50ML D5W 50 ML IV SCH (09:00)
[2020-05-22 09:05] VITALS: BP 140/82
[2020-05-22] MEDS: LISINOPRIL 10 MG TAB PO SCH (10:00)
[2020-05-22] MEDS: ENOXAPARIN SOD 40 MG/0.4 ML SYRINGE SC SCH (10:00)
[2020-05-22] MEDS: MEGESTROL ACET 400MG/10ML ORAL SUSP PO SCH ×2 (10:00→22:00)
[2020-05-22] MEDS: METOPROLOL SUCCINATE XL 50 MG TAB PO SCH (10:00)
[2020-05-22] MEDS: SERTRALINE HCL 50 MG TAB PO SCH (10:00)
[2020-05-22] MEDS: ASPirin 81 mg TAB PO SCH (10:00)
[2020-05-22] MEDS: FLORASTOR (S. BOULARDII) 250 MG CAP PO SCH (10:00)
--- NOTE | 2020-05-22 11:03 | NUR ---
Nutrition Followup Notes: Pt is with a peg tube currently receiving Glucerna 1.2 at home, having chronic diarrhea. Per MD request to aid in alleviation of diarrhea, and noted that pt glucose levels are not of concern per MD, recommend Pivot 1.5 @ 40ml/hr goal rate as tolerated. RN noted recommendation and will consult with MD before placing order. If pt receives bolus feedings at home, recommend 4 ea 240 ml cans/cartons per day. Will closely monitor pt tolerance and reassess as needed. Est energy needs BW 56 [id number] kcal (25-30 kcal/kg BW), Est protein needs 56-67g (1.0-1.2g/kg BW). Will reassess prn.
[2020-05-22] MEDS ORDERED: Pivot 1.5 Cal One Liter GT SCH (12:00)
[2020-05-22 12:43] VITALS: BP 112/61
--- NOTE | 2020-05-22 15:01 | NUR ---
STARTED TUBE FEEDING AT 20ML/HR. PATIENT DOES NOT SHOW ANY SIGNS OF DISTRESS.
--- NOTE | 2020-05-22 16:35 | NUR ---
INCREASED TUBE FEEDING TO 30ML/HR. PATIENT TOLERATING WELL AND DOES NOT SHOW ANY SIGNS OF DISTRESS.
[2020-05-22 17:15] VITALS: BP 113/60
--- NOTE | 2020-05-22 19:23 | NUR ---
PATIENT CARE ENDORSED TO CHRISTIN LEE. PATIENT SHOWS NO SIGNS OF DISTRESS AT THIS TIME.
--- NOTE | 2020-05-22 19:30 | NUR ---
Opening Shift Note Assumed care of patient awake and alert resting on L side in bed. HOB in Riggs's position. Cont. feeding infusing per PEG tube. Bed in low position. Pt answering 50 -75% questions with some complete sentences. No S/S of distress/SOB no c/o pain at this time. Instructed on POC, pt agreeable. RN will continue to monitor for changes Q1hr and PRN. Nurse call light near pt's L shoulder within reach of pt's R hand.
[2020-05-22 21:23] VITALS: BP 132/68
[2020-05-22] MEDS: ATORVASTATIN 20 MG TAB PO SCH (22:00)
[2020-05-23 05:42] VITALS: BP 121/73
[2020-05-23] MEDS: InsuLIN REG 1unit/0.01ml Soln (100units/ml) SC SCH ×4 (06:00→23:30)
[2020-05-23] MEDS: LEVOTHYROXINE SODIUM 100 MCG TAB PO SCH (06:20)
[2020-05-23] MEDS: ACCU-CHEK COMFORT CURVE STRIP VI SCH ×5 (06:20→23:32)
--- NOTE | 2020-05-23 06:58 | NUR ---
Pt sleeping. Much improved this night over previous in pt's being able to participate verbally in care making needs and desires known. Currently pt asleep. BG checked, feeding pump not working; feeding restarted and BG drawn and WNL. Pt quickly resumed sleep afterward. Call light within reach. Bed low and rails up x3 throughout night; 2 on the side pt faces and HOB rail behind her head and back. L lat hip has darkened area to most bony prominence; sl blanching of skin. Pt unable to swallow lipitor tablet with apple sauce, but able to swallow smaller pills cut into pieces and place in applesauce. Refuses megace 2/2 taste. Please consider liquid medications or non-ecteric for crushing and giving GT instead of po. Report to matt Davis RN.
--- NOTE | 2020-05-23 07:30 | NUR ---
Received report from Wandy España. Pt. is sleeping comfortably in bed. She is arousable to stimuli. Skin is warm and dry. Feedings are running properly. Johns was found to be open, PROFESSIONAL VOLLEYBALL PLAYER cleaned floor, placement is intact. Will continue to monitor.
--- NOTE | 2020-05-23 08:33 | NUR ---
Per mathematics academic chair report, Pt. hasn't had a BM since 05/21. This morning, Pt. had a smear of stool. Will continue to monitor. Addendum: 05/23/20 at 0848 by PAM TELLEZ RN RN Amended: Links added.
[2020-05-23 09:00] VITALS: BP 133/74
[2020-05-23] MEDS: ENOXAPARIN SOD 40 MG/0.4 ML SYRINGE SC SCH (10:00)
[2020-05-23] MEDS: cefTRIAXone 1GM/50ML D5W 50 ML IV SCH (10:03)
[2020-05-23] MEDS: SERTRALINE HCL 50 MG TAB PO SCH (11:09)
[2020-05-23] MEDS: MEGESTROL ACET 400MG/10ML ORAL SUSP PO SCH ×2 (11:11→21:37)
[2020-05-23] MEDS: LISINOPRIL 10 MG TAB PO SCH (11:11)
[2020-05-23] MEDS: METOPROLOL SUCCINATE XL 50 MG TAB PO SCH (11:11)
[2020-05-23] MEDS: ASPirin 81 mg TAB PO SCH (11:12)
[2020-05-23] MEDS: FLORASTOR (S. BOULARDII) 250 MG CAP PO SCH (11:12)
[2020-05-23 13:00] VITALS: BP 118/69
--- NOTE | 2020-05-23 14:38 | NUR ---
assessment Patient is a 80 year old female. Per patients Mukul prior to admission patient lived home with him and functioned with his assistance and assistance from [facility]. Patient has a hospital bed, wheelchair, bedside commode, fww for home use. Patient will be going home with Pivot tube feedings that has been ordered by hospice. Pivot will be in on Tuesday05/26/2020. Patient is also encouraged to eat by mouth a soft diet. I informed Mukul I will continue to monitor and follow up as appropriate. Mukul verbalized understanding and agreed to discharge plan home on hospice. Addendum: 05/23/20 at 1449 by Lexy OBREGON Amended: Links added.
--- NOTE | 2020-05-23 16:30 | NUR ---
Pt.'s peg tube was assessed for residuals. Ten mls were aspirated with syringe and returned to PEG tube. No skin breakdown noted on assessment.
[2020-05-23 17:00] VITALS: BP 151/85
--- NOTE | 2020-05-23 19:14 | NUR ---
Pt. is resting comfortably in bed. She is in no apparent distress. She did not eat much during the day, but was maintained in continuous feedings. Report given to Roya WALLER.
--- NOTE | 2020-05-23 20:00 | NUR ---
Opening Shift Note Assumed care of patient, awake and alert. No S/S of distress/SOB or pain. Instructed on POC and to call for assist PRN, will continue to monitor for changes Q1hr and PRN. Bed in low position call light within reach hob elevated and fall precautions in place.
--- NOTE | 2020-05-23 20:40 | NUR ---
Pt.'s peg tube was assessed for residuals. 5 mls were aspirated with syringe and returned to PEG tube. running feeding pivot at 40ml. No skin breakdown noted on assessment. patient repositioned to comfort. fall precautions in place. hob elevated.
[2020-05-23 21:08] VITALS: BP 142/82
[2020-05-23] MEDS: ATORVASTATIN 20 MG TAB PO SCH (21:37)
[2020-05-24 04:32] VITALS: BP 145/76
[2020-05-24] MEDS: ACCU-CHEK COMFORT CURVE STRIP VI SCH ×4 (05:30→23:23)
[2020-05-24] MEDS: InsuLIN REG 1unit/0.01ml Soln (100units/ml) SC SCH ×4 (05:30→23:24)
[2020-05-24] MEDS: LEVOTHYROXINE SODIUM 100 MCG TAB PO SCH (06:21)
--- NOTE | 2020-05-24 06:33 | NUR ---
patient rounds patient is awake and alert denies sob distress or pain. peg tube in place and patent. iv is intact and patent.fall precautions in place and call light within reach
--- NOTE | 2020-05-24 07:00 | NUR ---
endorsed care to dayshift rn patient denies sob distress or pain
--- NOTE | 2020-05-24 07:30 | NUR ---
Opening Shift Note Assumed care of patient, awake and alert to self only. Respirations are even and unlabored. No S/S of distress/SOB or pain. Bed is low, locked with 2x side rails up. Call light is within reach. Fall precautions are in place. Instructed on POC, reinforcement needed. Will continue to monitor for changes Q1hr and PRN.
--- NOTE | 2020-05-24 08:10 | NUR ---
Dr. Toure at bedside Discussing POC with this nurse. No new orders received. Will continue to monitor Q1hr and PRN.
[2020-05-24 09:00] VITALS: BP 133/77
[2020-05-24] MEDS: MEGESTROL ACET 400MG/10ML ORAL SUSP PO SCH ×2 (09:45→21:35)
[2020-05-24] MEDS: ENOXAPARIN SOD 40 MG/0.4 ML SYRINGE SC SCH (09:45)
[2020-05-24] MEDS: LISINOPRIL 10 MG TAB PO SCH (09:45)
[2020-05-24] MEDS: cefTRIAXone 1GM/50ML D5W 50 ML IV SCH (09:45)
[2020-05-24] MEDS: SERTRALINE HCL 50 MG TAB PO SCH (09:46)
[2020-05-24] MEDS: ASPirin 81 mg TAB PO SCH (09:46)
[2020-05-24] MEDS: FLORASTOR (S. BOULARDII) 250 MG CAP PO SCH (09:46)
[2020-05-24] MEDS: METOPROLOL SUCCINATE XL 50 MG TAB PO SCH (09:46)
--- NOTE | 2020-05-24 10:22 | NUR ---
Code status Dr. Toure and this nurse are speaking to patient's Mukul on the telephone. Dr. Toure is discussing current POC and code status with . Mukul is in agreement to changing patient's code status to DNR/DNI. explained change in code status in detail. All questions answered.
[2020-05-24 11:03] LABS: Basophils # (auto) 0 10 ^3/uL (0-0.2); Basophils % (auto) 0.7 % (0.0-2.0); Eosinophils # (auto) 0 10 ^3/uL (0-0.8); Eosinophils % (auto) 0.8 % (0.0-7.0); Hematocrit 34.4 % (36.0-46.0); Hemoglobin 11.4 g/dL (12.2-16.2); Lymphocytes % (auto) 16.1 % (10.0-50.0); Mean Corpuscular Hgb Conc. 33.2 g/dL (32.0-36.0); Mean Corpuscular Volume 93.2 fL (80.0-100.0); Monocytes # (auto) 0.4 10 ^3/uL (0-1.3); Monocytes % (auto) 7.2 % (0.0-12.0); Neutrophils # (auto) 4.6 10 ^3/uL (1.6-8.6); Neutrophils % (auto) 75.2 % (37.0-80.0); Nucleated Red Blood Cells % 0.1 %; Platelet Count (auto) 425 10^3/uL (140-450); Red Blood Cells 3.69 10^6/uL (4.0-5.20); Red Cell Distribution Width 13.9 % (11.8-14.3); White Blood Cell 6.2 10^3/uL (4.4-10.8)
[2020-05-24 11:18] LABS: Albumin 3.2 g/dL (3.4-5.0); Calcium 9.4 mg/dL (8.5-10.1); Potassium 3.4 mmol/L (3.5-5.1)
[2020-05-24 11:21] LABS: BUN/Creatinine Ratio 39.6; Bilirubin, Total 0.3 mg/dL (0.2-1.0); Total Protein 7.1 g/dL (6.4-8.2)
--- NOTE | 2020-05-24 12:51 | NUR ---
Nutrition Followup Notes Wt: 54.0 kg Pt was sleeping with no family by bedside. pt is currently on pureed diet with inadequte PO of < 50% x 4 per RN doc. pt is also on EN support with Pivot @ 40 ml/hr providing 1440 kcals and 94 gm proteins Est energy needs BW 56 [id number] kcal (25-30 kcal/kg BW), Est protein needs 56-67g (1.0-1.2g/kg BW). Will reassess prn. Labs: GLU 252 H BM: Pt had 2 BM on 05/21 per RN doc Skin: BS 12 high risk, full details in home day care provider note PES: Altered nutrition related lab values r.t current chronic medical condition aeb hyperglycemia elev a1c Increased nutrient needs r/t chronic medical condition aeb pt`s with PEG and poor PO Comments Will continue to monitor PO intake, EN tolerance skin status, pertinent labs and weight trends. Will f/u in 2-3 days. Rec: 1) Consider CCHO 45 gm puree diet. 2) Consider Glucerna 1 carton bid. 3) refer to CDE on DC. 4) continue current plan of care
[2020-05-24 13:00] VITALS: BP 140/73
[2020-05-24 17:00] VITALS: BP 105/57
--- NOTE | 2020-05-24 19:10 | NUR ---
Opening Shift Note Assumed care of patient, awake and alert to name and place. No S/S of distress/SOB or pain. Instructed on POC and to call for assist PRN, will continue to monitor for changes Q1hr and PRN. HOB elevated at least 30 degrees, call light is within reach, side rails are up x 3 and bed is locked in the lowest position.
--- NOTE | 2020-05-24 19:35 | NUR ---
Pt.'s peg tube was assessed for residuals. 10 mls were aspirated with syringe and returned to PEG tube. Running feeding pivot at 40ml. No skin breakdown noted on assessment. Patient repositioned to comfort. HOB elevated at least 30 degrees.
[2020-05-24] MEDS: ATORVASTATIN 20 MG TAB PO SCH (21:35)
[2020-05-24 21:55] VITALS: BP 119/75
[2020-05-25 05:00] VITALS: BP 107/64
[2020-05-25] MEDS: LEVOTHYROXINE SODIUM 100 MCG TAB PO SCH (06:12)
[2020-05-25] MEDS: InsuLIN REG 1unit/0.01ml Soln (100units/ml) SC SCH ×3 (06:16→17:41)
[2020-05-25] MEDS: ACCU-CHEK COMFORT CURVE STRIP VI SCH ×3 (06:16→17:37)
--- NOTE | 2020-05-25 07:09 | NUR ---
CLOSING NOTE ENDORSED CARE TO DAY SHIFT RN
--- NOTE | 2020-05-25 08:40 | NUR ---
Dr. Toure at bedside New orders received. Read back to verify. Will continue to monitor Q1hr and PRN.
[2020-05-25 09:00] VITALS: BP 151/83
[2020-05-25] MEDS ORDERED: POTASSIUM EFFERVESENT TAB 25 MEQ PO ONE (09:15)
[2020-05-25] MEDS: cefTRIAXone 1GM/50ML D5W 50 ML IV SCH (10:08)
[2020-05-25] MEDS: ENOXAPARIN SOD 40 MG/0.4 ML SYRINGE SC SCH (10:09)
[2020-05-25] MEDS: ASPirin 81 mg TAB PO SCH (10:09)
[2020-05-25] MEDS: METOPROLOL SUCCINATE XL 50 MG TAB PO SCH (10:09)
[2020-05-25] MEDS: FLORASTOR (S. BOULARDII) 250 MG CAP PO SCH (10:10)
[2020-05-25] MEDS: SERTRALINE HCL 50 MG TAB PO SCH (10:10)
[2020-05-25] MEDS: MEGESTROL ACET 400MG/10ML ORAL SUSP PO SCH ×2 (10:11→21:33)
[2020-05-25] MEDS: LISINOPRIL 10 MG TAB PO SCH (10:11)
[2020-05-25 13:00] VITALS: BP 154/83
[2020-05-25 17:00] VITALS: BP 156/87
--- NOTE | 2020-05-25 19:30 | NUR ---
Opening Shift Note Assumed care of patient, awake and alertX1. No S/S of distress/SOB or pain. Patient with julian draining to gravity, hanging below bed. Patient encourage to eat but refused. Will continue to monitor.
[2020-05-25 20:00] VITALS: BP 153/83
[2020-05-25] MEDS: ATORVASTATIN 20 MG TAB PO SCH (21:33)
[2020-05-25 22:00] VITALS: BP 153/83
--- NOTE | 2020-05-25 23:23 | NUR ---
Report Given Report/SBAR given to Mayela WALLER. Patient status not change.
--- NOTE | 2020-05-25 23:30 | NUR ---
Received report from CHRISTIN Wilson, patient oriented to self, able to state her name. Noted Pivot feeding at 40ml, no residual noted. Johns draining to cloudy yellow urine output. Bed in lowest position, bed alarm on, will continue to monitor
[2020-05-26] MEDS: InsuLIN REG 1unit/0.01ml Soln (100units/ml) SC SCH ×3 (00:09→11:42)
[2020-05-26] MEDS: ACCU-CHEK COMFORT CURVE STRIP VI SCH ×3 (00:09→11:35)
[2020-05-26 05:00] VITALS: BP 141/78
[2020-05-26] MEDS: LEVOTHYROXINE SODIUM 100 MCG TAB PO SCH (05:52)
--- NOTE | 2020-05-26 07:00 | NUR ---
OPENING SHIFT NOTE Assumed care of patient from fitness sales consultant RN Rosio. Patient is asleep in bed on her left side, no signs of distress noted, chest rise and fall is symmetrical. Patient has a julian placed for immobility draining cloudy yellow urine to gravity, no kinks or tubes noted, bag hung below bladder level. Bed is locked, in the lowest position, side rails are up x3 and call light is in reach.
[2020-05-26 08:00] VITALS: BP 147/83
[2020-05-26] MEDS: cefTRIAXone 1GM/50ML D5W 50 ML IV SCH (09:07)
[2020-05-26] MEDS: MEGESTROL ACET 400MG/10ML ORAL SUSP PO SCH (09:07)
[2020-05-26] MEDS: METOPROLOL SUCCINATE XL 50 MG TAB PO SCH (09:08)
[2020-05-26] MEDS: LISINOPRIL 10 MG TAB PO SCH (09:08)
[2020-05-26] MEDS: ASPirin 81 mg TAB PO SCH (09:08)
[2020-05-26] MEDS: FLORASTOR (S. BOULARDII) 250 MG CAP PO SCH (09:09)
[2020-05-26] MEDS: ENOXAPARIN SOD 40 MG/0.4 ML SYRINGE SC SCH (09:09)
[2020-05-26] MEDS: SERTRALINE HCL 50 MG TAB PO SCH (09:09)
--- NOTE | 2020-05-26 10:22 | NUR ---
CARLOS AT BEDSIDE Updated on the patient status. Per MD patient is to be discharged on hospice today.
--- NOTE | 2020-05-26 10:40 | NUR ---
WOUND PICTURES TAKEN FOR DISCHARGE. Wound pictures taken and proper forms completed per discharge protocol.
--- NOTE | 2020-05-26 11:30 | NUR ---
re-assessment Patient is now discharged. Per ss consult resume hospice on discharge. Safety care transport will transport patient home at 230pm. Yandy WALLER and Mukul has been notified. Hospice will resume today 05/26/2020. Mukul verbalized understanding and agreed with discharge plan home on hospice. Addendum: 05/26/20 at 1133 by Lexy Fletcher Amended: Links added.
[2020-05-26 12:00] VITALS: BP 131/65
[2020-05-26 12:17] VITALS: BP 131/65
--- NOTE | 2020-05-26 15:34 | NUR ---
DISCHARGE Discharge instructions given as ordered. Encourage to follow up with PMD as instructed. All questions and concerns addressed. Patient verbalized understanding. Medication reconciliation form completed and copy given to patient. IV removed with catheter intact, pressure dressing applied. Johns not removed per MD. Telemetry unit returned to ICU. Patient taken by transport after report was given. No distress noted at time of departure.
== END 2020-05-26 15:34 | disposition hospice, home (50) | DRG 392 ==
LOC: EDBD 10:43 → EDUNIT# 10:43 → ER 10:43 → TELE 10:44 → TELE-CENTR 15:34
PROVIDERS: ADMIT Hospitalist; ATTEND Internal Medicine
DX: K58.0 Irritable bowel syndrome with diarrhea (principal); E87.1 Hypo-osmolality and hyponatremia; R64 Cachexia; N39.0 Urinary tract infection, site not specified; I69.354 Hemiplegia and hemiparesis following cerebral infarction affecting left non-dominant side; R62.7 Adult failure to thrive; E86.0 Dehydration; G30.9 Alzheimer's disease, unspecified; F02.80 Dementia in other diseases classified elsewhere, unspecified severity, without behavioral disturbance, psychotic disturbance, mood disturbance, and anxiety; E11.65 Type 2 diabetes mellitus with hyperglycemia; Z79.4 Long term (current) use of insulin; M19.90 Unspecified osteoarthritis, unspecified site; K75.9 Inflammatory liver disease, unspecified; E11.21 Type 2 diabetes mellitus with diabetic nephropathy; E03.9 Hypothyroidism, unspecified; E86.9 Volume depletion, unspecified; E11.40 Type 2 diabetes mellitus with diabetic neuropathy, unspecified; I10 Essential (primary) hypertension; Z51.5 Encounter for palliative care; Z66 Do not resuscitate; Z90.710 Acquired absence of both cervix and uterus; Z93.1 Gastrostomy status; Z91.048 Other nonmedicinal substance allergy status
CPT/HCPCS: 36415; 80053; 80061; 80307; 81001; 82150; 82565; 82962; 83036; 83605; 83690; 83735; 84484; 85025; 87040; 87045; 87086; 87427; 87493; 93005; 96360; 97110; 97530; G0378; J0696; J1815; J2405; J3490

== ENCOUNTER 2021-07-03 09:13 | Inpatient (IN) | payer MEDICARE ==
[~2021-07-03] VITALS: Ht 160 cm; Wt 54.8 kg
[~2021-07-03 09:13] MED LIST changes: -BENA5TAB5 PO; +BENA5TAB9 PO; -EMPA1TAB3 PO; -HEPA10004 IJ; -LEVO150T10 PO; -METF-370 PO; -METF-372 PO; -ROSU10TA16 PO
[2021-07-03] MEDS ORDERED: LEVE250T18 PO (16:47)
[2021-07-03] MEDS ORDERED: CELE200C PO (16:47)
[2021-07-03] MEDS ORDERED: GLIP5TAB12 PO (16:51)
[2021-07-03] MEDS ORDERED: GABA300C10 PO (16:51)
[2021-07-03] MEDS ORDERED: CYCL-839 PO (16:51)
[2021-07-03] MEDS ORDERED: ASPI81CH49 PO (16:51)
[2021-07-03] MEDS ORDERED: SERT50TA19 PO (16:52)
[2021-07-03] MEDS ORDERED: TRAM50TA2 PO (17:12)
[2021-07-03] MEDS ORDERED: ACET-1156 PO (17:12)
[2021-07-03] MEDS ORDERED: MORP30TA PO (17:12)
[2021-07-03] MEDS ORDERED: ONDA-144 PO (17:12)
[2021-07-03] MEDS ORDERED: ACET-1156 PR (17:12)
[2021-07-03] MEDS ORDERED: LORA1TAB23 PO (17:12)
[2021-07-03] MEDS ORDERED: HAL5T PO (17:12)
[2021-07-03] MEDS ORDERED: DIPH2.5T16 PO (17:12)
[2021-07-03] MEDS ORDERED: HYDR-4833 PO (17:12)
[2021-07-03] MEDS ORDERED: LACT10SO60 PO (17:12)
[2021-07-03 17:51] VITALS: BP 169/78
[2021-07-03 18:02] VITALS: BP 173/73
[2021-07-03] MEDS: GABAPENTIN 300 MG CAP PO SCH (19:00)
[2021-07-03] MEDS: ATENOLOL 25 MG TAB PO SCH (19:00)
[2021-07-03 19:16] LABS: BUN/Creatinine Ratio 66.7; Calcium 10.1 mg/dL (8.5-10.1); Potassium 3.8 mmol/L (3.5-5.1)
[2021-07-03 19:28] LABS: Basophils # (auto) 0 10 ^3/uL (0-0.2); Basophils % (auto) 0.7 % (0.0-2.0); Eosinophils # (auto) 0.2 10 ^3/uL (0-0.8); Eosinophils % (auto) 2.7 % (0.0-7.0); Hematocrit 33.6 % (36.0-46.0); Hemoglobin 11.2 g/dL (12.2-16.2); Lymphocytes # (auto) 2.2 10 ^3/uL (0.4-5.4); Lymphocytes % (auto) 36.1 % (10.0-50.0); Mean Corpuscular Hemoglobin 29.9 pg (28.0-32.0); Mean Corpuscular Hgb Conc. 33.4 g/dL (32.0-36.0); Mean Corpuscular Volume 89.5 fL (80.0-100.0); Monocytes # (auto) 0.5 10 ^3/uL (0-1.3); Monocytes % (auto) 8.4 % (0.0-12.0); Neutrophils # (auto) 3.1 10 ^3/uL (1.6-8.6); Neutrophils % (auto) 52.1 % (37.0-80.0); Nucleated Red Blood Cells % 0.1 %; Red Blood Cells 3.75 10^6/uL (4.0-5.20); Red Cell Distribution Width 13.5 % (11.8-14.3)
[2021-07-03 19:33] LABS: INR 1.01 (0.9-1.15)
[2021-07-03 22:00] VITALS: BP 112/54
[2021-07-03] MEDS: levETIRAcetam 500 MG TAB PO SCH (22:32)
[2021-07-03] MEDS: CYCLOBENZAPRINE HCL 10 MG TAB PO SCH (22:32)
[2021-07-03] MEDS: ATORVASTATIN 20 MG TAB PO SCH (22:33)
[2021-07-03] MEDS: glipiZIDE 5 MG TAB PO SCH (22:42)
[2021-07-04 05:00] VITALS: BP 128/63
[2021-07-04] MEDS: LEVOTHYROXINE SODIUM 100 MCG TAB PO SCH (06:44)
[2021-07-04] MEDS: ATENOLOL 50 MG TAB PO SCH (06:45)
[2021-07-04 09:00] VITALS: BP 120/76
[2021-07-04 09:03] LABS: INR 1.04 (0.9-1.15); Partial Thromboplastin Time 27.9 sec (23.6-33.0)
[2021-07-04] MEDS: glipiZIDE 5 MG TAB PO SCH ×2 (09:38→23:01)
[2021-07-04] MEDS: levETIRAcetam 500 MG TAB PO SCH ×2 (09:38→23:01)
[2021-07-04] MEDS: CYCLOBENZAPRINE HCL 10 MG TAB PO SCH ×2 (09:38→23:01)
[2021-07-04] MEDS: CELECOXIB 100 MG CAP PO SCH (09:38)
[2021-07-04] MEDS: BENAZEPRIL HCL 10 MG TAB PO SCH (09:38)
[2021-07-04] MEDS: SERTRALINE HCL 50 MG TAB PO SCH (09:39)
[2021-07-04] MEDS ORDERED: ASPirin 81 mg TAB PO SCH (10:00)
[2021-07-04 14:30] VITALS: BP 118/76
[2021-07-04] MEDS ORDERED: diphenhdrAMINE HCL 50 MG/1 ML VL ONE (14:38)
[2021-07-04] MEDS ORDERED: SODIUM CHLORIDE LOCK 10 ML ONE (14:38)
[2021-07-04] MEDS: MIDAZOLAM HCL 5 MG/ML-1ML VIAL ONE ×2 (14:49→14:52)
[2021-07-04] MEDS: fentaNYL CITRATE 100 MCG/2 ML VL ONE ×2 (14:49→14:52)
[2021-07-04] MEDS ORDERED: ceFAZolin 1GM/50ML 50 ML IV ONE ×2 (15:13→15:30)
[2021-07-04] MEDS: GABAPENTIN 300 MG CAP PO SCH (17:22)
[2021-07-04] MEDS: ATENOLOL 25 MG TAB PO SCH (17:23)
[2021-07-04 22:00] VITALS: BP 137/69
[2021-07-04] MEDS: ATORVASTATIN 20 MG TAB PO SCH (23:01)
[2021-07-05 05:00] VITALS: BP 132/70
[2021-07-05] MEDS: LEVOTHYROXINE SODIUM 100 MCG TAB PO SCH (06:46)
[2021-07-05] MEDS: ATENOLOL 50 MG TAB PO SCH (06:46)
[2021-07-05 09:00] VITALS: BP 129/75
[2021-07-05] MEDS: levETIRAcetam 500 MG TAB PO SCH ×2 (09:39→21:27)
[2021-07-05] MEDS: CELECOXIB 100 MG CAP PO SCH (09:39)
[2021-07-05] MEDS: glipiZIDE 5 MG TAB PO SCH ×2 (09:39→21:30)
[2021-07-05] MEDS: CYCLOBENZAPRINE HCL 10 MG TAB PO SCH ×2 (09:39→21:29)
[2021-07-05] MEDS: BENAZEPRIL HCL 10 MG TAB PO SCH (09:40)
[2021-07-05] MEDS: SERTRALINE HCL 50 MG TAB PO SCH (09:40)
[2021-07-05 13:00] VITALS: BP 128/65
[2021-07-05] MEDS ORDERED: HYDROcodone-ACET 5/325MG TAB PO PRN (13:15)
[2021-07-05] MEDS: ATENOLOL 25 MG TAB PO SCH (17:06)
[2021-07-05] MEDS: GABAPENTIN 300 MG CAP PO SCH (17:06)
[2021-07-05 17:08] VITALS: BP 114/77
[2021-07-05] MEDS ORDERED: ACETAMINOPHEN 325 MG TAB PO PRN (18:45)
[2021-07-05] MEDS: ATORVASTATIN 20 MG TAB PO SCH (21:30)
[2021-07-05 22:00] VITALS: BP 99/55
[2021-07-06 05:00] VITALS: BP 104/57
[2021-07-06] MEDS: LEVOTHYROXINE SODIUM 100 MCG TAB PO SCH (06:07)
[2021-07-06] MEDS: ATENOLOL 50 MG TAB PO SCH (06:36)
[2021-07-06 09:00] VITALS: BP 111/67
[2021-07-06] MEDS: CYCLOBENZAPRINE HCL 10 MG TAB PO SCH (10:47)
[2021-07-06] MEDS: BENAZEPRIL HCL 10 MG TAB PO SCH (10:48)
[2021-07-06] MEDS: levETIRAcetam 500 MG TAB PO SCH (10:49)
[2021-07-06] MEDS: CELECOXIB 100 MG CAP PO SCH (10:50)
[2021-07-06] MEDS: SERTRALINE HCL 50 MG TAB PO SCH (10:50)
[2021-07-06] MEDS: glipiZIDE 5 MG TAB PO SCH (10:53)
[2021-07-06 13:00] VITALS: BP 130/76
[2021-07-06 17:00] VITALS: BP 137/83
[2021-07-06] MEDS: GABAPENTIN 300 MG CAP PO SCH (18:04)
[2021-07-06] MEDS: ATENOLOL 25 MG TAB PO SCH (18:04)
== END 2021-07-06 18:28 | disposition home or self-care (01) | DRG 394 ==
LOC: WEST WING 13:18
PROVIDERS: ADMIT Internal Medicine Cardiovascular Disease; ATTEND Internal Medicine Cardiovascular Disease
PROC: 0DP6XUZ Removal of Feeding Device from Stomach, External Approach (ICD-10-PCS; 2021-07-04)
PROC: 0DC68ZZ Extirpation of Matter from Stomach, Via Natural or Artificial Opening Endoscopic (ICD-10-PCS; principal; 2021-07-04 14:44)
DX: K94.23 Gastrostomy malfunction (principal); I69.354 Hemiplegia and hemiparesis following cerebral infarction affecting left non-dominant side; K31.84 Gastroparesis; I10 Essential (primary) hypertension; E11.43 Type 2 diabetes mellitus with diabetic autonomic (poly)neuropathy; D64.9 Anemia, unspecified; Z20.822 Contact with and (suspected) exposure to COVID-19; Z90.710 Acquired absence of both cervix and uterus
CPT/HCPCS: 36415; 43247; 71045; 80048; 82962; 83036; 85025; 85610; 85730; 86850; 86900; 86901; 93005; 97163; G0378; J0690; J2250

== ENCOUNTER → 2021-07-29 | Outpatient (CLI) | payer MEDICARE ==
[~2021-07-29] MED LIST changes: +ACET-1156 PO; +ACET-1156 PR; +ASPI81CH49 PO; +CELE200C PO; +CYCL-839 PO; +DIPH2.5T16 PO; +GABA300C10 PO; +GLIP5TAB12 PO; +HAL5T PO; +HYDR-4833 PO; +LACT10SO60 PO; +LEVE250T18 PO; +LORA1TAB23 PO; -MAGN400T40 PO; +MORP30TA PO; +ONDA-144 PO; +SERT50TA19 PO; +TRAM50TA2 PO
[2021-07-29 13:33] LABS: Basophils # (auto) 0.1 10 ^3/uL (0-0.2); Basophils % (auto) 0.9 % (0.0-2.0); Eosinophils # (auto) 0.2 10 ^3/uL (0-0.8); Eosinophils % (auto) 2.7 % (0.0-7.0); Hematocrit 32.9 % (36.0-46.0); Hemoglobin 10.6 g/dL (12.2-16.2); Lymphocytes # (auto) 1.6 10 ^3/uL (0.4-5.4); Lymphocytes % (auto) 25.3 % (10.0-50.0); Mean Corpuscular Hemoglobin 29.5 pg (28.0-32.0); Mean Corpuscular Hgb Conc. 32.3 g/dL (32.0-36.0); Mean Corpuscular Volume 91.4 fL (80.0-100.0); Monocytes # (auto) 0.5 10 ^3/uL (0-1.3); Monocytes % (auto) 7.9 % (0.0-12.0); Neutrophils % (auto) 63.2 % (37.0-80.0); Red Cell Distribution Width 13.9 % (11.8-14.3); White Blood Cell 6.3 10^3/uL (4.4-10.8)
[2021-07-29 13:49] LABS: Albumin 3.2 g/dL (3.4-5.0); Calcium 9.3 mg/dL (8.5-10.1); Magnesium 2.5 mg/dL (1.6-2.6)
[2021-07-29 13:52] LABS: BUN/Creatinine Ratio 84.2; Bilirubin, Total 0.2 mg/dL (0.2-1.0); Total Protein 7.8 g/dL (6.4-8.2)
[2021-07-29 13:59] LABS: Free T4 (Free Thyroxine) 1.4 ng/dL (0.89-1.76)
== END | disposition home or self-care (01) ==
LOC: LAB 12:54
PROVIDERS: ATTEND Internal Medicine Cardiovascular Disease
DX: E11.9 Type 2 diabetes mellitus without complications (principal); I63.9 Cerebral infarction, unspecified; C03.9 Malignant neoplasm of gum, unspecified; Z79.899 Other long term (current) drug therapy
CPT/HCPCS: 36415; 80053; 82306; 82607; 83735; 84439; 84443; 85025